=== PATIENT | female | born 1975 | race African-American/Black ===

== ENCOUNTER → 2016-11-03 | Outpatient (CLI) | payer MEDICARE ==
[2016-11-03 18:19] LABS: ABSOLUTE EOSINOPHILS # (AUTO) 0.1 10^3/uL (0.0-0.6); ABSOLUTE LYMPHOCYTES (AUTO) 0.2 10^3/uL (0.5-4.7); ABSOLUTE MONOCYTES (AUTO) 0.4 10^3/uL (0.1-1.4); ABSOLUTE NEUT (AUTO) 3.3 10^3/uL (1.7-8.2); BASOPHILS % (AUTO) 0.3 % (0-2); EOSINOPHILS % (AUTO) 1.6 % (0-6); HEMATOCRIT 26.8 % (36.0-47.0); HEMOGLOBIN 8.7 g/dL (12.0-15.5); HGB HCT DIFFERENCE -0.7; LYMPHOCYTES % (AUTO) 6.1 % (13-45); MEAN CORPUSCULAR HEMOGLOBIN 29.4 pg (27.0-33.4); MEAN CORPUSCULAR HGB CONC 32.5 g/dL (32.0-36.0); MEAN CORPUSCULAR VOLUME 90 fl (80-97); MONOCYTES % (AUTO) 10.4 % (3-13); RED BLOOD COUNT 2.96 10^6/uL (3.72-5.28); RED CELL DISTRIBUTION WIDTH 17.8 % (11.5-14.0); SEGMENTED NEUTROPHILS % (AUTO) 81.6 % (42-78)
[2016-11-03 18:50] LABS: ALANINE AMINOTRANSFERASE 30 U/L (9-52); ALBUMIN 4.1 g/dL (3.5-5.0); ALKALINE PHOSPHATASE 68 U/L (38-126); ANION GAP 15 (5-19); ASPARTATE AMINO TRANSFERASE 39 U/L (14-36); BILIRUBIN,TOTAL 0.6 mg/dL (0.2-1.3); BLOOD UREA NITROGEN 20 mg/dL (7-20); C-REACTIVE PROTEIN 21.7 mg/L (<10.0); CALCIUM 9.1 mg/dL (8.4-10.2); CARBON DIOXIDE 30 mmol/L (22-30); CHLORIDE 98 mmol/L (98-107); CREATININE RESULT 1.29 mg/dL (0.52-1.25); GLUCOSE 103 mg/dL (75-110); POTASSIUM 3.2 mmol/L (3.6-5.0); SODIUM 142.7 mmol/L (137-145); TOTAL PROTEIN 7.7 g/dL (6.3-8.2); URIC ACID 8.6 mg/dL (2.5-7.0)
[2016-11-03 19:01] LABS: ERYTHROCYTE SEDIMENTATION RATE 80 mm/hr (0-20)
[2016-11-04 16:54] LABS: ABSOLUTE LYMPHOCYTES (AUTO) 0.3 10^3/uL (0.5-4.7); ABSOLUTE MONOCYTES (AUTO) 0.6 10^3/uL (0.1-1.4); ABSOLUTE NEUT (AUTO) 3.2 10^3/uL (1.7-8.2); BASOPHILS % (AUTO) 0.3 % (0-2); HEMATOCRIT 26.1 % (36.0-47.0); HEMOGLOBIN 8.4 g/dL (12.0-15.5); HGB HCT DIFFERENCE -0.9; LYMPHOCYTES % (AUTO) 6.7 % (13-45); MEAN CORPUSCULAR HEMOGLOBIN 29.1 pg (27.0-33.4); MEAN CORPUSCULAR HGB CONC 32.3 g/dL (32.0-36.0); MEAN CORPUSCULAR VOLUME 90 fl (80-97); MONOCYTES % (AUTO) 13.5 % (3-13); RED CELL DISTRIBUTION WIDTH 17.7 % (11.5-14.0); SEGMENTED NEUTROPHILS % (AUTO) 78.5 % (42-78); WHITE BLOOD COUNT 4.1 10^3/uL (4.0-10.5)
== END ==
LOC: OD 17:11
PROVIDERS: ATTEND Internal Medicine Rheumatology
DX: M15.0 Primary generalized (osteo)arthritis (principal); M54.5 Low back pain; M05.79 Rheumatoid arthritis with rheumatoid factor of multiple sites without organ or systems involvement; R53.83 Other fatigue; D64.9 Anemia, unspecified; Z79.899 Other long term (current) drug therapy; M79.609 Pain in unspecified limb; M79.1 Myalgia; M25.50 Pain in unspecified joint; G89.4 Chronic pain syndrome; M10.9 Gout, unspecified
CPT/HCPCS: 36415; 80053; 82728; 83540; 83550; 84550; 85025; 85045; 85652; 86140

== ENCOUNTER → 2016-12-30 | Outpatient (CLI) | payer MEDICARE ==
[2016-12-30 16:36] LABS: ABSOLUTE EOSINOPHILS # (AUTO) 0.1 10^3/uL (0.0-0.6); ABSOLUTE LYMPHOCYTES (AUTO) 0.8 10^3/uL (0.5-4.7); ABSOLUTE MONOCYTES (AUTO) 0.4 10^3/uL (0.1-1.4); BASOPHILS % (AUTO) 0.6 % (0-2); EOSINOPHILS % (AUTO) 1.9 % (0-6); HEMATOCRIT 26.8 % (36.0-47.0); HEMOGLOBIN 8.7 g/dL (12.0-15.5); HGB HCT DIFFERENCE -0.7; LYMPHOCYTES % (AUTO) 18.6 % (13-45); MEAN CORPUSCULAR HEMOGLOBIN 27.8 pg (27.0-33.4); MEAN CORPUSCULAR HGB CONC 32.3 g/dL (32.0-36.0); MEAN CORPUSCULAR VOLUME 86 fl (80-97); MONOCYTES % (AUTO) 8.8 % (3-13); RED BLOOD COUNT 3.11 10^6/uL (3.72-5.28); RED CELL DISTRIBUTION WIDTH 19.1 % (11.5-14.0); SEGMENTED NEUTROPHILS % (AUTO) 70.1 % (42-78); WHITE BLOOD COUNT 4.3 10^3/uL (4.0-10.5)
[2016-12-30 17:01] LABS: ALANINE AMINOTRANSFERASE 22 U/L (9-52); ALBUMIN 3.9 g/dL (3.5-5.0); ALKALINE PHOSPHATASE 73 U/L (38-126); ANION GAP 12 (5-19); ASPARTATE AMINO TRANSFERASE 25 U/L (14-36); BILIRUBIN,DIRECT 0.3 mg/dL (0.0-0.4); BILIRUBIN,TOTAL 0.4 mg/dL (0.2-1.3); BLOOD UREA NITROGEN 18 mg/dL (7-20); C-REACTIVE PROTEIN 8.9 mg/L (<10.0); CALCIUM 8.8 mg/dL (8.4-10.2); CARBON DIOXIDE 29 mmol/L (22-30); CHLORIDE 100 mmol/L (98-107); CREATININE RESULT 0.94 mg/dL (0.52-1.25); GLUCOSE 124 mg/dL (75-110); POTASSIUM 3.5 mmol/L (3.6-5.0); SODIUM 141.3 mmol/L (137-145); TOTAL PROTEIN 7.6 g/dL (6.3-8.2)
[2016-12-30 17:23] LABS: ERYTHROCYTE SEDIMENTATION RATE 78 mm/hr (0-20)
== END ==
LOC: OD 15:49
PROVIDERS: ATTEND Internal Medicine Rheumatology
DX: M05.79 Rheumatoid arthritis with rheumatoid factor of multiple sites without organ or systems involvement (principal); M10.9 Gout, unspecified; M25.50 Pain in unspecified joint; M15.0 Primary generalized (osteo)arthritis; M25.569 Pain in unspecified knee; D50.8 Other iron deficiency anemias; Z79.899 Other long term (current) drug therapy
CPT/HCPCS: 36415; 80053; 84550; 85025; 85652; 86140

== ENCOUNTER 2017-01-19 22:03 | Emergency (ER) | payer MEDICARE ==
[2017-01-20] MEDS ORDERED: HYDROCODONE/ACETAMINOPHEN 5-325 MG 6 TAB/DSPK PO PRN (02:24)
[2017-01-20] MEDS ORDERED: PENICILLIN V POTASSIUM 500 MG TABLET PO ONE (02:24)
--- NOTE | 2017-01-20 02:26 | ER Document Report ---
HPI - HPI Patient complains to provider of: tooth pain, congestion, tongue irritation Pain Level: 4 Context: Patient is a 41-year-old female that comes emergency department with chief complaint of 5 days of pain in her jaw reading up towards her years, worse on the right lower side, also present slightly on the left. Patient also states that she feels like her to his burning intermittently, she denies loss of sensation or taste. Patient also states she is congested and some measure ears ringing. She admits congestion and ear ringing is not new and has been going on intermittently for months and she is seen primary care for this. She denies fever, neck pain. - REPRODUCTIVE LMP: 12/23/16 Reproductive: DENIES: : - DERM Skin Color: Normal Past Medical History - General Information source: Patient - Social History Smoking Status: Never Smoker Frequency of alcohol use: None Drug Abuse: None Lives with: Family Family History: Reviewed & Not Pertinent Patient has suicidal ideation: No Patient has homicidal ideation: No - Past Medical History Cardiac Medical History: Reports: Hx Hypercholesterolemia, Hx Hypertension Endocrine Medical History: Reports: Hx Diabetes Mellitus Type 1 Renal/ Medical History: Denies: Hx Peritoneal Dialysis Musculoskeltal Medical History: Reports Hx Arthritis - rheumatoid - Immunizations Hx Diphtheria, Pertussis, Tetanus Vaccination: Yes Vertical Provider Document - CONSTITUTIONAL General Appearance: No Apparent Distress, Obese - INFECTION CONTROL TRAVEL OUTSIDE OF THE [place] IN LAST 30 DAYS: No - HEENT HEENT: Atraumatic, Normocephalic. negative: PERRLA, Pharyngeal Exudate, Pharyngeal Tenderness, Pharyngeal Erythema, Tympanic Membrane Red, Tympanic Membrane Bulging Mouth Diagram: 1 - Dental caries with surrounding erythema, no drainable abscess, no other abnormalities noted in the oral cavity - NECK Neck: Normal Inspection - RESPIRATORY Respiratory: Breath Sounds Normal, No Respiratory Distress O2 Sat by Pulse Oximetry: 100 - CARDIOVASCULAR Cardiovascular: Regular Rate, Regular Rhythm - GI/ABDOMEN Gastrointestinal: Abdomen Soft, Abdomen Non-Tender - BACK Back: Normal Inspection - MUSCULOSKELETAL/EXTREMETIES Musculoskeletal/Extremeties: MAEW, FROM, Non-Tender - NEURO Level of Consciousness: Awake, Alert, Appropriate Motor/Sensory: No Motor Deficit, No Sensory Deficit - DERM Integumentary: Warm, Dry, No Rash Course - Re-evaluation Re-evalutation: Patient asking for Flonase for intermittent nasal congestion. - Vital Signs Vital signs: Temp Pulse Resp BP Pulse Ox 98.6 F 82 20 142/68 H 100 01/19/17 22:12 01/19/17 22:12 01/19/17 22:12 01/19/17 22:12 01/19/17 22:12 Discharge - Discharge Clinical Impression: Pain, dental Condition: Stable Disposition: HOME, SELF-CARE Additional Instructions: Take penicillin as directed for dental infection, follow-up with your dentist for additional management. Take pain medication if needed. Take the Flonase if needed for congestion symptoms. Follow-up with primary care additionally. Return to the emergency department for any concerning or worsening symptoms. Prescriptions: Fluticasone Propionate [Flonase Nasal [place] 50 Mcg/[place] 16 gm] 1 spray NASL Q12 #1 inhaler Hydrocodone/Acetaminophen [[place] 5-325 mg Tablet] 1 - 2 tab PO ASDIR #15 tablet Penicillin V Potassium [Penicillin Vk 500 mg Tablet] 500 mg PO BID #20 tablet
[2017-01-20 02:50] VITALS: BP 161/92
== END 2017-01-20 02:48 | disposition home or self-care (01) ==
LOC: ER 22:03
DX: K08.89 Other specified disorders of teeth and supporting structures (principal); R09.81 Nasal congestion
CPT/HCPCS: 99282; A9270 ×2

== ENCOUNTER → 2017-10-27 | Outpatient (CLI) | payer MEDICARE ==
[2017-10-27 18:42] LABS: ABSOLUTE LYMPHOCYTES (AUTO) 0.8 10^3/uL (0.5-4.7); ABSOLUTE MONOCYTES (AUTO) 0.3 10^3/uL (0.1-1.4); ABSOLUTE NEUT (AUTO) 2.2 10^3/uL (1.7-8.2); BASOPHILS % (AUTO) 0.4 % (0-2); EOSINOPHILS % (AUTO) 1.2 % (0-6); HEMATOCRIT 29.8 % (36.0-47.0); HEMOGLOBIN 9.9 g/dL (12.0-15.5); LYMPHOCYTES % (AUTO) 24.3 % (13-45); MEAN CORPUSCULAR HEMOGLOBIN 30.3 pg (27.0-33.4); MEAN CORPUSCULAR HGB CONC 33.2 g/dL (32.0-36.0); MEAN CORPUSCULAR VOLUME 91 fl (80-97); MONOCYTES % (AUTO) 9.8 % (3-13); PLATELET COUNT 286 10^3/uL (150-450); RED BLOOD COUNT 3.27 10^6/uL (3.72-5.28); RED CELL DISTRIBUTION WIDTH 17.5 % (11.5-14.0); SEGMENTED NEUTROPHILS % (AUTO) 64.3 % (42-78); TOTAL CELLS COUNTED % (AUTO) 100 %; WHITE BLOOD COUNT 3.4 10^3/uL (4.0-10.5)
[2017-10-27 19:06] LABS: ALANINE AMINOTRANSFERASE 33 U/L (9-52); ALBUMIN 4.5 g/dL (3.5-5.0); ALKALINE PHOSPHATASE 54 U/L (38-126); ANION GAP 9 (5-19); ASPARTATE AMINO TRANSFERASE 33 U/L (14-36); BILIRUBIN,DIRECT 0.4 mg/dL (0.0-0.4); BILIRUBIN,TOTAL 0.4 mg/dL (0.2-1.3); BLOOD UREA NITROGEN 18 mg/dL (7-20); CALCIUM 9.6 mg/dL (8.4-10.2); CARBON DIOXIDE 34 mmol/L (22-30); CHLORIDE 99 mmol/L (98-107); GLUCOSE 112 mg/dL (75-110); POTASSIUM 3.6 mmol/L (3.6-5.0); SODIUM 141.7 mmol/L (137-145); TOTAL PROTEIN 7.8 g/dL (6.3-8.2)
[2017-10-27 19:35] LABS: ERYTHROCYTE SEDIMENTATION RATE 55 mm/hr (0-20)
== END ==
LOC: OD 16:52
PROVIDERS: ATTEND Internal Medicine Rheumatology
DX: M15.0 Primary generalized (osteo)arthritis (principal); Z79.899 Other long term (current) drug therapy; M05.29 Rheumatoid vasculitis with rheumatoid arthritis of multiple sites; M79.1 Myalgia; E79.0 Hyperuricemia without signs of inflammatory arthritis and tophaceous disease; M06.9 Rheumatoid arthritis, unspecified; E55.9 Vitamin D deficiency, unspecified
CPT/HCPCS: 36415; 80053; 85025; 85652; 86140

== ENCOUNTER 2017-11-05 20:01 | Emergency (ER) | payer MEDICARE ==
[2017-11-05 22:31] LABS: ABSOLUTE LYMPHOCYTES (AUTO) 0.7 10^3/uL (0.5-4.7); ABSOLUTE MONOCYTES (AUTO) 0.6 10^3/uL (0.1-1.4); ABSOLUTE NEUT (AUTO) 2.8 10^3/uL (1.7-8.2); BASOPHILS % (AUTO) 0.3 % (0-2); EOSINOPHILS % (AUTO) 0.3 % (0-6); HEMATOCRIT 29.5 % (36.0-47.0); HEMOGLOBIN 9.8 g/dL (12.0-15.5); LYMPHOCYTES % (AUTO) 16.6 % (13-45); MEAN CORPUSCULAR HEMOGLOBIN 30.5 pg (27.0-33.4); MEAN CORPUSCULAR HGB CONC 33.1 g/dL (32.0-36.0); MEAN CORPUSCULAR VOLUME 92 fl (80-97); MONOCYTES % (AUTO) 15.3 % (3-13); PLATELET COUNT 254 10^3/uL (150-450); RED CELL DISTRIBUTION WIDTH 17.7 % (11.5-14.0); SEGMENTED NEUTROPHILS % (AUTO) 67.5 % (42-78); TOTAL CELLS COUNTED % (AUTO) 100 %; WHITE BLOOD COUNT 4.1 10^3/uL (4.0-10.5)
[2017-11-05 22:57] LABS: ANION GAP 14 (5-19); BLOOD UREA NITROGEN 16 mg/dL (7-20); CALCIUM 9.2 mg/dL (8.4-10.2); CARBON DIOXIDE 29 mmol/L (22-30); CHLORIDE 99 mmol/L (98-107); GLUCOSE 108 mg/dL (75-110); POTASSIUM 3.2 mmol/L (3.6-5.0); SODIUM 141.6 mmol/L (137-145)
--- NOTE | 2017-11-05 23:30 | RADIOLOGY REPORT (SQ) ---
EXAM DESCRIPTION: U/S NON OB PEL TV W/DOPPLER COMPLETED DATE/TIME: 11/05/2017 10:58 pm REASON FOR STUDY: heavy vaginal bleeding x 2 months COMPARISON: None. TECHNIQUE: Dynamic and static grayscale images acquired of the pelvis via transvaginal approach and recorded on PACS. Additional selected color Doppler and spectral images recorded. LIMITATIONS: Dense shadowing in the right adnexal mass. FINDINGS: UTERUS: Contour normal. No mass. ENDOMETRIAL STRIPE: No focal or generalized thickening. No masses. CERVIX: No nabothian cysts. RIGHT OVARY: 5 cm complex density mass with shadowing in the right adnexa suggesting calcifications. Pelvic Dermoid lesion reported on prior CT from July 2015. RIGHT OVARY DOPPLER: Normal arterial vascular flow without evidence for torsion. LEFT OVARY: Ovary not visualized. FREE FLUID: None noted. OTHER: No other significant finding. MEASUREMENTS: UTERUS: 10.4 x 5.7 x 4.0 cm ENDOMETRIAL STRIPE: 3.5 mm RIGHT OVARY: 4.8 x 3.4 x 5.0 cm LEFT OVARY: Not visualized. IMPRESSION: Incompletely evaluated 5 cm complex density mass with shadowing in the right adnexa sugg esting calcifications, Pelvic Dermoid lesion reported on prior CT from July 2015. Nonvisualized left ovary. TECHNICAL DOCUMENTATION: JOB ID: [id number] [id number] 2010 [employer]- All Rights Reserved
--- NOTE | 2017-11-06 | ER Document Report ---
ED General - General Chief Complaint: Vaginal Bleeding Stated Complaint: MENSTRURAL PROBLEM Time Seen by Provider: 11/05/17 21:54 Notes: Patient is a 42-year-old female morbidly obese, history of hypertension, hyperlipidemia, who presents with concerns of ongoing vaginal bleeding. Patient states that she has a history of highly irregular menstrual cycles but that her current period has been much heavier and longer lasting than normal. She states that she became concerned when she passed what appeared to be a piece of tissue today. No history of similar episodes in the past. She has not seen her primary doctor and [facility] regarding today's concerns. She denies any abdominal pain, fever, vomiting, or syncope. She has not tried anything to regulate her menstrual cycle since she was in her 20s. Nothing seems to worsen her symptoms. She does note some chronic fatigue. TRAVEL OUTSIDE OF THE [place] IN LAST 30 DAYS: No - Related Data Allergies/Adverse Reactions: tramadol [From [employer]] Adverse Reaction (Verified 08/17/16 11:42) Past Medical History - General Information source: Patient - Social History Smoking Status: Never Smoker Chew tobacco use (# tins/day): No Frequency of alcohol use: None Drug Abuse: None Lives with: Alone Family History: Reviewed & Not Pertinent Patient has suicidal ideation: No Patient has homicidal ideation: No - Past Medical History Cardiac Medical History: Reports: Hx Hypercholesterolemia, Hx Hypertension Endocrine Medical History: Reports: Hx Diabetes Mellitus Type 1 Renal/ Medical History: Denies: Hx Peritoneal Dialysis Musculoskeltal Medical History: Reports Hx Arthritis - rheumatoid - Immunizations Hx Diphtheria, Pertussis, Tetanus Vaccination: Yes Review of Systems - Review of Systems Notes: Constitutional: Negative for fever. HENT: Negative for sore throat. Eyes: Negative for visual changes. Cardiovascular: Negative for chest pain. Respiratory: Negative for shortness of breath. Gastrointestinal: Negative for abdominal pain, vomiting or diarrhea. Genitourinary: Positive for vaginal bleeding Musculoskeletal: Negative for back pain. Skin: Negative for rash. Neurological: Negative for headaches, weakness or numbness. 10 point ROS negative except as marked above and in HPI. Physical Exam - Vital signs Vitals: Temp Pulse Resp BP Pulse Ox 98.6 F 79 20 152/95 H 97 11/05/17 20:51 11/05/17 20:51 11/05/17 20:51 11/05/17 20:51 11/05/17 20:51 Interpretation: Hypertensive Notes: PHYSICAL EXAMINATION: GENERAL: Obese female, well-appearing, well-nourished and in no acute distress. HEAD: Atraumatic, normocephalic. EYES: Pupils equal round and reactive to light, extraocular movements intact, sclera anicteric, conjunctiva are normal. ENT: nares patent, oropharynx clear without exudates. Moist mucous membranes. NECK: Normal range of motion, supple without lymphadenopathy LUNGS: Breath sounds clear to auscultation bilaterally and equal. No wheezes rales or rhonchi. HEART: Regular rate and rhythm without murmurs ABDOMEN: Morbidly obese abdomen, soft, nontender, normoactive bowel sounds. No guarding, no rebound. No masses appreciated. EXTREMITIES: Normal range of motion, no pitting or edema. No cyanosis. NEUROLOGICAL: No focal neurological deficits. Moves all extremities spontaneously and on command. PSYCH: Normal mood, normal affect. SKIN: Warm, Dry, normal turgor, no rashes or lesions noted. Course - Re-evaluation Re-evalutation: 11/05/17 23:56 Presentation is most consistent with dysfunctional uterine bleeding and otherwise well-appearing patient. Hemoglobin is unchanged from baseline.. She is not . No tachycardia or hypotension. Examination is otherwise unremarkable. She denies bleeding through more than 2 pads an hour at any point in time. Transvaginal ultrasound does not demonstrate any concerning findings, only a right ovarian cyst which was present in 2015. I have prescribed ferrous sulfate for her chronic anemia and recommended stool softeners to take with this medication. I have instructed that she will need to follow-up with [facility] as this is been a chronic problem. I do not suspect any alternative pathology as patient denies any symptoms other than heavy vaginal bleeding and actually denies any ongoing bleeding at time of my assessment. At this time will discharge with return precautions and follow-up recommendations. Verbal discharge instructions given a the bedside and opportunity for questions given. Medication warnings reviewed. Patient is in agreement with this plan and has verbalized understanding of return precautions and the need for primary care follow-up in the next 24-72 hours. - Vital Signs Vital signs: Temp Pulse Resp BP Pulse Ox 98.9 F 79 17 169/86 H 97 11/06/17 00:11 11/06/17 00:11 11/06/17 00:11 11/06/17 00:11 11/06/17 00:11 - Laboratory Result Diagrams: 11/05/17 22:19 11/05/17 22:19 Laboratory results interpreted by me: 11/05/17 11/05/17 22:19 22:19 RBC 3.20 L Hgb 9.8 L Hct 29.5 L RDW 17.7 H Monocytes % 15.3 H Potassium 3.2 L Est GFR (Non-Af Amer) 53 L - Diagnostic Test Radiology reviewed: Reports reviewed Discharge - Discharge Clinical Impression: Dysfunctional uterine bleeding, Chronic anemia Condition: Good Disposition: HOME, SELF-CARE Additional Instructions: You were seen today for dysfunctional uterine bleeding. This is when you have vaginal bleeding and abdominal cramping off of your normal menstrual cycle. You need to follow-up with [facility] or your primary care physician the next 1-3 days to discuss long-term options for regulating your cycle. Return immediately if you begin to have severe abdominal pain, you began bleeding through more than 2 pads per hour for more than 3 hours, you pass out, have persistent vomiting, develop a fever greater than 100.4F, or any other symptoms that are concerning to you. Begin taking iron tablets that have been prescribed. Please take to docusate tablets daily while taking the iron supplements as they are very constipating. Prescriptions: Ferrous Sulfate 325 mg PO TID #90 tablet
[2017-11-06 00:19] VITALS: BP 169/86
== END 2017-11-06 00:11 | disposition home or self-care (01) ==
LOC: ER 20:01
DX: N93.8 Other specified abnormal uterine and vaginal bleeding (principal); D64.9 Anemia, unspecified; E66.01 Morbid (severe) obesity due to excess calories; I10 Essential (primary) hypertension; E78.5 Hyperlipidemia, unspecified
CPT/HCPCS: 36415; 76830; 80048; 84702; 85025; 86900; 86901; 93976; 99284

== ENCOUNTER 2017-11-09 05:35 | Emergency (ER) | payer MEDICARE ==
[2017-11-09 05:53] VITALS: BP 108/58
--- NOTE | 2017-11-09 06:31 | ER Document Report ---
ED General - General Chief Complaint: Cough Stated Complaint: COUGH/TROUBLE BREATHING Time Seen by Provider: 11/09/17 06:19 Notes: 82-year-old lady presents with cough all night "coughing like a dog". She has been getting over a cold and states that she also has some "cold in my chest left over. She describes this as pleuritic chest pain or shortness of breath. No fever chills. No flu. Took 1 dose of Robitussin and came to the ED. No history of reactive airway disease. Obese and diabetic. No smoking. TRAVEL OUTSIDE OF THE [place] IN LAST 30 DAYS: No - Related Data Allergies/Adverse Reactions: No Known Allergies Allergy (Unverified 11/09/17 06:13) Past Medical History - Social History Smoking Status: Never Smoker Chew tobacco use (# tins/day): No Frequency of alcohol use: None Drug Abuse: None Family History: Reviewed & Not Pertinent Patient has suicidal ideation: No Patient has homicidal ideation: No - Past Medical History Cardiac Medical History: Reports: Hx Hypercholesterolemia, Hx Hypertension Endocrine Medical History: Reports: Hx Diabetes Mellitus Type 1 Renal/ Medical History: Denies: Hx Peritoneal Dialysis Musculoskeltal Medical History: Reports Hx Arthritis - rheumatoid - Immunizations Hx Diphtheria, Pertussis, Tetanus Vaccination: Yes Review of Systems - Review of Systems Notes: REVIEW OF SYSTEMS GEN: Denies fever, chills, weight loss ENT: Denies sore throat, nasal discharge, ear pain EYES: Denies blurry vision, eye pain, discharge CV: Denies chest pain, palpitations, edema RESP: Cough shortness of breath GI: Denies abdominal pain, nausea, vomiting, diarrhea MSK: Denies joint pain/swelling, edema, SKIN: Denies rash, skin lesions LYMPH: Denies swollen glands/lymph nodes NEURO: Denies headache, focal weakness or numbness, dizziness PSYCH: Denies depression, suicidal or homicidal ideation PHYSICAL EXAMINATION General: No acute distress, well-nourished. Obese. Head: Atraumatic, normocephalic ENT: Mouth normal, oropharynx moist, no exudates or tonsillar enlargement Eyes: Conjunctiva normal, pupils equal, lids normal Neck: No JVD, supple, no guarding CVS: Normal rate, regular rhythm, no murmurs Resp: No resp distress, equal and normal breath sounds bilaterally GI: Nondistended, soft, no tenderness to palpation, no rebound or guarding Ext: No deformities, no edema, normal range of motion in upper and lower ext Back: No CVA or midline TTP Skin: No rash, warm Lymphatic: No lymphadeopathy noted Neuro: Awake, alert. Face symmetric. GCS 15. Physical Exam - Vital signs Vitals: Temp Pulse Resp BP Pulse Ox 98.5 F 74 20 108/58 L 98 11/09/17 05:51 11/09/17 05:51 11/09/17 05:51 11/09/17 05:51 11/09/17 05:51 Course - Re-evaluation Re-evalutation: 11/09/17 06:31 Upper respiratory symptoms including chest pain shortness breath, sounds very viral-like congestion or pneumonia. Vitals are normal. Doubt flu. X-ray ordered. No evidence of reactive airway disease and exam. 11/09/17 07:26 Chest x-ray negative. Tessalon prescribed. I have discussed with the patient there likely diagnosis, aftercare plan, follow-up plans and my usual and customary return precautions. They verbalized understanding of this. - Vital Signs Vital signs: Temp Pulse Resp BP Pulse Ox 98.5 F 74 20 108/58 L 98 11/09/17 05:51 11/09/17 05:51 11/09/17 05:51 11/09/17 05:51 11/09/17 05:51 - Diagnostic Test Radiology reviewed: Image reviewed, Reports reviewed Discharge - Discharge Clinical Impression: Upper respiratory infection Qualifiers: URI type: unspecified URI Qualified Code(s): J06.9 - Acute upper respiratory infection, unspecified Condition: Good Disposition: HOME, SELF-CARE Instructions: Upper Respiratory Illness ([facility]) Additional Instructions: Follow-up with your primary care provider within 5 days Prescriptions: Benzonatate [Tessalon [place] 100 mg Capsule] 100 mg PO Q8HP PRN #40 cap PRN Reason:
--- NOTE | 2017-11-09 07:15 | RADIOLOGY REPORT (SQ) ---
EXAM DESCRIPTION: CHEST PA/LAT CLINICAL HISTORY: 42 years, Female, cough COMPARISON: 10/08/2013 NUMBER OF VIEWS: 2 FINDINGS: Normal lung volume, clear parenchyma, normal cardiac silhouette, and intact bony thorax. IMPRESSION: No acute cardiopulmonary findings.
== END 2017-11-09 07:47 | disposition home or self-care (01) ==
LOC: ER 05:35
DX: J06.9 Acute upper respiratory infection, unspecified (principal); R05 Cough; R07.81 Pleurodynia; I10 Essential (primary) hypertension; R06.02 Shortness of breath; E10.9 Type 1 diabetes mellitus without complications; E66.9 Obesity, unspecified; Z68.44 Body mass index [BMI] 60.0-69.9, adult
CPT/HCPCS: 71046; 99283

== ENCOUNTER → 2018-04-22 | Outpatient (CLI) | payer MEDICARE ==
[2018-04-22 18:22] LABS: ABSOLUTE EOSINOPHILS # (AUTO) 0.1 10^3/uL (0.0-0.6); ABSOLUTE LYMPHOCYTES (AUTO) 0.7 10^3/uL (0.5-4.7); ABSOLUTE MONOCYTES (AUTO) 0.5 10^3/uL (0.1-1.4); ABSOLUTE NEUT (AUTO) 4.3 10^3/uL (1.7-8.2); BASOPHILS % (AUTO) 0.4 % (0-2); EOSINOPHILS % (AUTO) 0.9 % (0-6); HEMATOCRIT 33.8 % (36.0-47.0); HEMOGLOBIN 11.5 g/dL (12.0-15.5); LYMPHOCYTES % (AUTO) 12.3 % (13-45); MEAN CORPUSCULAR VOLUME 94 fl (80-97); MONOCYTES % (AUTO) 8.4 % (3-13); PLATELET COUNT 238 10^3/uL (150-450); RED BLOOD COUNT 3.59 10^6/uL (3.72-5.28); RED CELL DISTRIBUTION WIDTH 16.4 % (11.5-14.0); TOTAL CELLS COUNTED % (AUTO) 100 %; WHITE BLOOD COUNT 5.5 10^3/uL (4.0-10.5)
[2018-04-22 18:46] LABS: ALANINE AMINOTRANSFERASE 27 U/L (9-52); ALBUMIN 4.3 g/dL (3.5-5.0); ALKALINE PHOSPHATASE 55 U/L (38-126); ANION GAP 13 (5-19); ASPARTATE AMINO TRANSFERASE 34 U/L (14-36); BILIRUBIN,DIRECT 0.5 mg/dL (0.0-0.4); BILIRUBIN,TOTAL 0.5 mg/dL (0.2-1.3); BLOOD UREA NITROGEN 16 mg/dL (7-20); C-REACTIVE PROTEIN 5.2 mg/L (<10.0); CALCIUM 9.3 mg/dL (8.4-10.2); CARBON DIOXIDE 29 mmol/L (22-30); CHLORIDE 99 mmol/L (98-107); GLUCOSE 151 mg/dL (75-110); POTASSIUM 3.5 mmol/L (3.6-5.0); SODIUM 141.3 mmol/L (137-145); TOTAL PROTEIN 8.1 g/dL (6.3-8.2)
[2018-04-22 19:02] LABS: ERYTHROCYTE SEDIMENTATION RATE 42 mm/hr (0-20)
== END ==
LOC: OD 17:20
PROVIDERS: ATTEND Internal Medicine Rheumatology
DX: M15.0 Primary generalized (osteo)arthritis (principal); M25.569 Pain in unspecified knee; M05.29 Rheumatoid vasculitis with rheumatoid arthritis of multiple sites; M79.1 Myalgia; M79.606 Pain in leg, unspecified; E79.0 Hyperuricemia without signs of inflammatory arthritis and tophaceous disease; M06.9 Rheumatoid arthritis, unspecified; E55.9 Vitamin D deficiency, unspecified; Z79.899 Other long term (current) drug therapy
CPT/HCPCS: 36415; 80053; 85025; 85652; 86140

== ENCOUNTER 2018-06-12 19:41 | Inpatient (IN) | payer MEDICARE ==
[2018-06-12] MEDS ORDERED: ONDANSETRON HCL INJ/PF 4 MG/2 ML SDV IV ONE (20:39)
[2018-06-12] MEDS ORDERED: LOPERAMIDE HCL 2 MG CAPSULE PO ONE (20:39)
[2018-06-12] MEDS ORDERED: NORMAL SALINE 1000 ML 1,000 ML IV ONE (20:39)
[2018-06-12 21:55] LABS: ALANINE AMINOTRANSFERASE 26 U/L (9-52); ALBUMIN 4.5 g/dL (3.5-5.0); ALKALINE PHOSPHATASE 83 U/L (38-126); ASPARTATE AMINO TRANSFERASE 37 U/L (14-36); BILIRUBIN,DIRECT 0.8 mg/dL (0.0-0.4); BILIRUBIN,TOTAL 1.2 mg/dL (0.2-1.3); BLOOD UREA NITROGEN 23 mg/dL (7-20); CALCIUM 9.5 mg/dL (8.4-10.2); LIPASE 56.1 U/L (23-300)
[2018-06-12 22:03] LABS: ANION GAP 20 (5-19)
[2018-06-12 22:04] LABS: CHLORIDE 84 mmol/L (98-107)
[2018-06-12 22:05] LABS: CARBON DIOXIDE 33 mmol/L (22-30); SODIUM 136.6 mmol/L (137-145)
[2018-06-12 22:06] LABS: GLUCOSE 497 mg/dL (75-110)
[2018-06-12 22:07] LABS: POTASSIUM 2.7 mmol/L (3.6-5.0)
[2018-06-12] MEDS ORDERED: RINGERS SOLUTION,LACTATED 1,000 ML IV ONE (22:18)
[2018-06-12] MEDS ORDERED: POTASSI CL 20 MEQ/50 ML RIDER 20 MEQ/50 ML RTUPB IV ONE (22:19)
[2018-06-12 22:29] LABS: ABSOLUTE LYMPHOCYTES (AUTO) 0.4 10^3/uL (0.5-4.7); ABSOLUTE MONOCYTES (AUTO) 0.5 10^3/uL (0.1-1.4); ABSOLUTE NEUT (AUTO) 4.1 10^3/uL (1.7-8.2); BASOPHILS % (AUTO) 0.4 % (0-2); EOSINOPHILS % (AUTO) 0.1 % (0-6); HEMATOCRIT 37.2 % (36.0-47.0); HEMOGLOBIN 12.8 g/dL (12.0-15.5); LYMPHOCYTES % (AUTO) 7.5 % (13-45); MEAN CORPUSCULAR HEMOGLOBIN 32.8 pg (27.0-33.4); MEAN CORPUSCULAR HGB CONC 34.4 g/dL (32.0-36.0); MEAN CORPUSCULAR VOLUME 95 fl (80-97); MONOCYTES % (AUTO) 10.6 % (3-13); PLATELET COUNT 177 10^3/uL (150-450); RED BLOOD COUNT 3.91 10^6/uL (3.72-5.28); RED CELL DISTRIBUTION WIDTH 14.9 % (11.5-14.0); SEGMENTED NEUTROPHILS % (AUTO) 81.4 % (42-78); TOTAL CELLS COUNTED % (AUTO) 100 %; WHITE BLOOD COUNT 5.1 10^3/uL (4.0-10.5)
[2018-06-12] MEDS ORDERED: INSULIN REG, HUMAN 100 UNIT/ML 3 ML VIAL (PYX) SUBCUT ONE (22:33)
--- NOTE | 2018-06-12 22:35 | ER Document Report ---
ED General - General Chief Complaint: Nausea/Vomiting/Diarrhea Stated Complaint: VOMITING Time Seen by Provider: 06/12/18 20:38 Notes: Patient is a 42-year-old female with a past medical history of insulin- dependent type 2 diabetes, hypertension, hyperlipidemia, morbid obesity who presents with 3 days of nausea, vomiting, diarrhea, and inability to tolerate oral intake. The patient states that the symptoms started shortly after she took a dose of oral fluconazole and have been ongoing since that time. She has not seen her general doctor regarding today's concerns. She has not noted that anything seems to improve or worsen her symptoms. She denies any history of similar symptoms in the past. No known sick contacts. She denies any focal abdominal pain but notes that she intermittently gets abdominal cramping when she has diarrheal bowel movements. She denies any current abdominal pain at this time. TRAVEL OUTSIDE OF THE [place] IN LAST 30 DAYS: No - Related Data Allergies/Adverse Reactions: No Known Allergies Allergy (Unverified 11/09/17 06:13) Past Medical History - General Information source: Patient - Social History Smoking Status: Never Smoker Frequency of alcohol use: None Drug Abuse: None Family History: Reviewed & Not Pertinent Patient has suicidal ideation: No Patient has homicidal ideation: No - Past Medical History Cardiac Medical History: Reports: Hx Hypercholesterolemia, Hx Hypertension Endocrine Medical History: Reports: Hx Diabetes Mellitus Type 1, Hx Diabetes Mellitus Type 2 Renal/ Medical History: Denies: Hx Peritoneal Dialysis Musculoskeletal Medical History: Reports Hx Arthritis - rheumatoid - Immunizations Hx Diphtheria, Pertussis, Tetanus Vaccination: Yes Review of Systems - Review of Systems Notes: Constitutional: Negative for fever. HENT: Negative for sore throat. Eyes: Negative for visual changes. Cardiovascular: Negative for chest pain. Respiratory: Negative for shortness of breath. Gastrointestinal: Positive for nausea, vomiting and diarrhea. Positive for abdominal cramping. Genitourinary: Negative for dysuria. Musculoskeletal: Negative for back pain. Skin: Negative for rash. Neurological: Negative for headaches, weakness or numbness. 10 point ROS negative except as marked above and in HPI. Physical Exam - Vital signs Vitals: Temp Pulse Resp BP Pulse Ox 98.5 F 88 16 137/89 H 98 06/12/18 19:52 06/12/18 19:52 06/12/18 19:52 06/12/18 19:52 06/12/18 19:52 Interpretation: Normal Notes: PHYSICAL EXAMINATION: GENERAL: Appears somewhat ill but in no acute distress HEAD: Atraumatic, normocephalic. EYES: Pupils equal round and reactive to light, extraocular movements intact, sclera anicteric, conjunctiva are normal. ENT: nares patent, oropharynx clear without exudates. Dry mucous membranes. NECK: Normal range of motion, supple without lymphadenopathy LUNGS: Breath sounds clear to auscultation bilaterally and equal. No wheezes rales or rhonchi. HEART: Regular rate and rhythm without murmurs ABDOMEN: Soft, morbidly obese abdomen, nontender, normoactive bowel sounds. No guarding, no rebound. No masses appreciated. EXTREMITIES: Normal range of motion, no pitting or edema. No cyanosis. NEUROLOGICAL: No focal neurological deficits. Moves all extremities spontaneously and on command. PSYCH: Normal mood, normal affect. SKIN: Warm, Dry, normal turgor, no rashes or lesions noted. Course - Re-evaluation Re-evalutation: 06/12/18 22:34 Patient presents with 3 days of persistent nausea, vomiting and diarrhea found to have profound electrolyte abnormalities including hypokalemia, hyponatremia, hyperglycemia, and a metabolic alkalosis consistent with persistent vomiting and diarrhea. The patient is overall nontoxic in appearance. Of concern however is that she has a prolonged QT in the setting of profound hypokalemia. We have initiated potassium and magnesium repletion. She is also receiving IV fluids. She has no focal abdominal tenderness, rebound or guarding on exam to suggest an acute intra-abdominal pathology. Symptoms appear most consistent with either a viral versus bacterial gastroenteritis. Stool cultures will be obtained if patient has another bowel movement here in the emergency department. Will also obtain a two-view of the abdomen to ensure that there is not a possible component of obstruction. The patient will then be admitted to the hospital. - Vital Signs Vital signs: Temp Pulse Resp BP Pulse Ox 98.5 F 88 15 137/86 H 98 06/12/18 19:52 06/12/18 19:52 06/13/18 02:01 06/13/18 02:01 06/13/18 02:01 - Laboratory Result Diagrams: 06/12/18 21:07 06/13/18 01:00 Laboratory results interpreted by me: 06/12/18 06/12/18 06/12/18 21:07 21:07 21:07 RDW 14.9 H Seg Neutrophils % 81.4 H Lymphocytes % 7.5 L Absolute Lymphocytes 0.4 L Sodium 136.6 L Potassium 2.7 L* Chloride 84 L Carbon Dioxide 33 H Anion Gap 20 H BUN 23 H Creatinine 1.81 H Est GFR ( Amer) 37 L Est GFR (Non-Af Amer) 30 L Glucose 497 H* Magnesium 1.5 L Direct Bilirubin 0.8 H AST 37 H Total Protein 9.0 H - Diagnostic Test Radiology reviewed: Image reviewed, Reports reviewed Radiology results interpreted by me: 06/12/18 23:26 2 view abdomen: No evidence of obstruction or perforation - EKG Interpretation by Me Additional EKG results interpreted by me: 06/12/18 23:27 Sinus rhythm. Rate 81. Prolonged QT at 534. No ST elevations or depressions. Discharge - Discharge Clinical Impression: Prolonged QT interval, Hypokalemia, Nausea vomiting and diarrhea, Dehydration Condition: Fair Disposition: ADMITTED INPATIENT Admitting Provider: Hospitalist Unit Admitted: [facility]
[2018-06-12 22:53] LABS: VENOUS BLOOD HCO3 31.9 mmol/L (20-32); VENOUS BLOOD PCO2 52.4 mmHg (35-63); VENOUS BLOOD PH 7.4 (7.30-7.42)
--- NOTE | 2018-06-12 23:22 | RADIOLOGY REPORT (SQ) ---
EXAM DESCRIPTION: XR ABDOMEN 2 VIEWS SUPINE ERECT COMPLETED DATE/TME: 06/12/2018 22:33 CLINICAL HISTORY: 42 years Female, n/v COMPARISON: None. NUMBER OF VIEWS/TECHNIQUE: 2 FINDINGS: Intestinal gas pattern is within normal limits. No suspicious calcification. Grossly intact skeletal structures. IMPRESSION: No acute findings.
[2018-06-12] MEDS ORDERED: DEXTROSE 40% GEL 15 GM TUBE PO PRN ×2 (23:28)
[2018-06-12] MEDS ORDERED: IPRATROPIUM/ALBUTEROL 0.5-2.5 MG/3 ML AMPUL NEB PRN (23:28)
[2018-06-12] MEDS ORDERED: ACETAMINOPHEN 325 MG TABLET PO PRN (23:28)
[2018-06-12] MEDS ORDERED: NORMAL SALINE 100 ML with INSULIN REGULAR, HUMAN 100 UNIT IV PRN ×2 (23:28)
[2018-06-12] MEDS ORDERED: DEXTROSE 50%-WATER 25 GM/50 ML DISP.SYRIN IV PRN ×2 (23:28)
[2018-06-12] MEDS ORDERED: GLUCAGON,HUMAN RECOMB 1 MG INJ IM PRN (23:28)
[2018-06-12] MEDS ORDERED: MAG HYDROX/AL HYDROX/SIMETH SUSP 30 ML UDCUP PO PRN (23:28)
[2018-06-13] MEDS ORDERED: POTASSI CL 20 MEQ/D5-1/2NS 1L 1,000 ML IV SCH
[2018-06-13] MEDS: MAGNESIUM SULFATE/D5W 1 GM/100 ML RTUPB IV SCH ×2 (00:38→01:03)
[2018-06-13] MEDS ORDERED: INSULIN REG, HUMAN 100 UNIT/ML 3 ML VIAL (PYX) ONE (01:26)
[2018-06-13 01:45] LABS: BLOOD UREA NITROGEN 23 mg/dL (7-20); CALCIUM 8.9 mg/dL (8.4-10.2); CHLORIDE 88 mmol/L (98-107); SODIUM 135.5 mmol/L (137-145)
[2018-06-13 01:50] LABS: POTASSIUM 2.8 mmol/L (3.6-5.0)
[2018-06-13 01:51] LABS: CARBON DIOXIDE 29 mmol/L (22-30)
[2018-06-13 01:55] LABS: ANION GAP 19 (5-19)
[2018-06-13 01:57] LABS: GLUCOSE 420 mg/dL (75-110)
[2018-06-13] MEDS: POTASSI CL 20 MEQ/D5-1/2NS 1L 1,000 ML IV PRN ×2 (04:12→09:07)
[2018-06-13 04:20] LABS: APPEARANCE,URINE SLIGHTLY-CLOUDY; BILIRUBIN,URINE NEGATIVE (NEGATIVE); COLOR,URINE YELLOW; GLUCOSE, URINE >=500 mg/dL (NEGATIVE); KETONES,URINE 20 mg/dL (NEGATIVE); LEUKOCYTE ESTERASE,URINE SMALL (NEGATIVE); NITRITE,URINE NEGATIVE (NEGATIVE); PROTEIN,URINE 100 mg/dL (NEGATIVE); URINE SPECIFIC GRAVITY 1.031; UROBILINOGEN,URINE NEGATIVE mg/dL (<2.0)
[2018-06-13 04:33] LABS: URINE AMPHETAMINES SCREEN NEGATIVE; URINE BARBITURATES SCREEN NEGATIVE; URINE BENZODIAZEPINES SCREEN NEGATIVE; URINE MARIJUANA (THC) SCREEN NEGATIVE; URINE METHADONE SCREEN NEGATIVE; URINE PHENCYCLIDINE SCREEN NEGATIVE
[2018-06-13 05:11] LABS: ARTERIAL BLOOD BASE EXCESS 9.3 mmol/L; ARTERIAL BLOOD FIO2 ROOM AIR; ARTERIAL BLOOD H2CO3 1.37 mmol/L (1.05-1.35); ARTERIAL BLOOD HCO3 33.8 mmol/L (20-24); ARTERIAL BLOOD O2 SATURATION 95.2 % (94-98); ARTERIAL BLOOD PCO2 45.6 mmHg (35-45); ARTERIAL BLOOD PH 7.49 (7.35-7.45); ARTERIAL BLOOD PO2 70.7 mmHg (80-100); ARTERIAL BLOOD TOTAL CO2 35.2 mmol/L (21-25)
[2018-06-13 05:15] LABS: URINE COCAINE SCREEN NEGATIVE
[2018-06-13 05:27] LABS: ABSOLUTE LYMPHOCYTES (AUTO) 0.5 10^3/uL (0.5-4.7); ABSOLUTE MONOCYTES (AUTO) 0.5 10^3/uL (0.1-1.4); ABSOLUTE NEUT (AUTO) 2.7 10^3/uL (1.7-8.2); BASOPHILS % (AUTO) 0.5 % (0-2); HEMATOCRIT 31.9 % (36.0-47.0); HEMOGLOBIN 11.1 g/dL (12.0-15.5); LYMPHOCYTES % (AUTO) 12.3 % (13-45); MEAN CORPUSCULAR HEMOGLOBIN 32.5 pg (27.0-33.4); MEAN CORPUSCULAR HGB CONC 34.9 g/dL (32.0-36.0); MEAN CORPUSCULAR VOLUME 93 fl (80-97); MONOCYTES % (AUTO) 13.4 % (3-13); PLATELET COUNT 110 10^3/uL (150-450); RED BLOOD COUNT 3.42 10^6/uL (3.72-5.28); RED CELL DISTRIBUTION WIDTH 15.2 % (11.5-14.0); SEGMENTED NEUTROPHILS % (AUTO) 72.8 % (42-78); TOTAL CELLS COUNTED % (AUTO) 100 %; WHITE BLOOD COUNT 3.7 10^3/uL (4.0-10.5)
[2018-06-13] MEDS ORDERED: POTASSI CL 20 MEQ/D5-1/2NS 1L 1,000 ML IV PRN (05:30)
--- NOTE | 2018-06-13 05:45 | PDOC H&P ---
History of Present Illness Admission Date/PCP: 06/13/18 00:03 ALBA KINNEY MD Patient complains of: Nausea vomiting diarrhea History of Present Illness: LINDA COATS is a 42 year old female with a past medical history of super morbid obesity and insulin dependent diabetes. She presents with 5 days of diarrhea and discontinuation of insulin followed by nausea, vomiting and uncontrolled hyperglycemia. She denies fever, suspect meal, recent antibiotics or infectious contacts. In the emergency room she is found to have dehydration , hypokalemia, DKA, acute renal failure and prolonged QT interval. She receives potassium, magnesium and referred to the hospitalist for admission. Past Medical History Cardiac Medical History: Reports: Hyperlipidema, Hypertension Endocrine Medical History: Reports: Diabetes Mellitus Type 1, Obesity Musculoskeltal Medical History: Reports: Arthritis - rheumatoid Psychiatric Medical History: Denies: Depression Social History Information Source: Patient, [facility] Records Smoking Status: Never Smoker Frequency of Alcohol Use: None Hx Recreational Drug Use: No Drugs: None Hx Prescription Drug Abuse: No - Advance Directive Resuscitation Status: Full Code Family History Family History: Hypertension Parental Family History Reviewed: Yes Children Family History Reviewed: Yes Sibling(s) Family History Reviewed.: Yes Medication/Allergy Home Medications: Ondansetron [Zofran Odt 4 mg Tablet] 1 - 2 tab PO Q4H PRN #15 tab.rapdis Ciprofloxacin HCl [Cipro 500 mg Tablet] 500 mg PO BID #10 tablet 04/16/14 Folic Acid 1 mg PO DAILY 04/16/14 Gabapentin [Neurontin] 600 mg PO TID 04/16/14 Meloxicam [Mobic] 15 mg PO DAILY 04/16/14 Prednisolone 5 mg PO DAILY 04/16/14 Simvastatin 40 mg PO QHS 04/16/14 Tramadol HCl [Ultram] 50 mg PO TID 04/16/14 Ondansetron [Zofran Odt 4 mg Tablet] 1 tab PO Q4H PRN #15 tab.rapdis 07/24/15 Clindamycin HCl 300 mg PO Q6H #20 capsule 08/17/16 Fluticasone Propionate [Flonase Nasal [place] 50 Mcg/[place] 16 gm] 1 spray NASL Q12 #1 inhaler 01/20/17 Hydrocodone/Acetaminophen [[place] 5-325 mg Tablet] 1 - 2 tab PO ASDIR #15 tablet 01/20/17 Penicillin V Potassium [Penicillin Vk 500 mg Tablet] 500 mg PO BID #20 tablet Ferrous Sulfate 325 mg PO TID #90 tablet 11/05/17 Benzonatate [Tessalon Perle 100 mg Capsule] 100 mg PO Q8HP PRN #40 cap 11/09/17 Allergies/Adverse Reactions: No Known Allergies Allergy (Unverified 11/09/17 06:13) Review of Systems Constitutional: PRESENT: as per HPI, anorexia, fatigue. ABSENT: fever(s), headache(s), night sweats, weakness Eyes: ABSENT: visual disturbances Ears: ABSENT: hearing changes Cardiovascular: ABSENT: chest pain, dyspnea on exertion, edema, orthropnea, palpitations Respiratory: ABSENT: cough, hemoptysis Gastrointestinal: PRESENT: as per HPI, bloating, diarrhea, nausea, vomiting. ABSENT: abdominal pain, coffee ground emesis, constipation, dysphagia Genitourinary: ABSENT: dysuria, hematuria Musculoskeletal: ABSENT: joint swelling Integumentary: ABSENT: rash, wounds Neurological: ABSENT: abnormal gait, abnormal speech, confusion, dizziness, focal weakness, syncope Psychiatric: ABSENT: anxiety, depression, homidical ideation, suicidal ideation Endocrine: PRESENT: as per HPI, polyphagia, polyuria Hematologic/Lymphatic: ABSENT: easy bleeding, easy bruising Physical Exam Vital Signs: Temp Pulse Resp BP Pulse Ox 98.4 F 78 20 142/88 H 99 06/13/18 03:30 06/13/18 03:30 06/13/18 03:30 06/13/18 03:30 06/13/18 03:30 Intake & Output 06/11/18 06/12/18 06/13/18 11:59 11:59 11:59 Intake Total 1199 Balance 1199 Weight 148.3 kg General appearance: PRESENT: cooperative, mild distress, morbidly obese, well- developed, well-nourished Head exam: PRESENT: atraumatic, normocephalic Eye exam: PRESENT: conjunctiva pink, EOMI, PERRLA. ABSENT: scleral icterus Ear exam: PRESENT: normal external ear exam Mouth exam: PRESENT: dry mucosa, tongue midline Neck exam: ABSENT: carotid bruit, JVD, lymphadenopathy, thyromegaly Respiratory exam: PRESENT: clear to auscultation thania. ABSENT: rales, rhonchi, wheezes Cardiovascular exam: PRESENT: RRR. ABSENT: diastolic murmur, rubs, systolic murmur Pulses: PRESENT: normal dorsalis pedis pul Vascular exam: PRESENT: normal capillary refill GI/Abdominal exam: PRESENT: normal bowel sounds, soft. ABSENT: distended, guarding, mass, organolmegaly, rebound, tenderness Rectal exam: PRESENT: deferred Extremities exam: PRESENT: full ROM. ABSENT: calf tenderness, clubbing, pedal edema Neurological exam: PRESENT: alert, awake, oriented to person, oriented to place , oriented to time, oriented to situation, CN II-XII grossly intact. ABSENT: motor sensory deficit Psychiatric exam: PRESENT: appropriate affect, normal mood. ABSENT: homicidal ideation, suicidal ideation Skin exam: PRESENT: dry, intact, warm. ABSENT: cyanosis, rash Results Laboratory Results: 06/13/18 05:17 06/13/18 06/13/18 06/13/18 01:00 04:00 04:08 WBC RBC Hgb Hct MCV MCH MCHC RDW Plt Count Seg Neutrophils % Lymphocytes % Monocytes % Eosinophils % Basophils % Absolute Neutrophils Absolute Lymphocytes Absolute Monocytes Absolute Eosinophils Absolute Basophils Carbonic Acid HCO3/H2CO3 Ratio ABG pH ABG pCO2 ABG pO2 ABG HCO3 ABG O2 Saturation ABG Base Excess FiO2 Sodium 135.5 L Potassium 2.8 L* Chloride 88 L Carbon Dioxide 29 Anion Gap 19 BUN 23 H Creatinine 1.58 H Est GFR ( Amer) 43 L Est GFR (Non-Af Amer) 36 L Glucose 420 H* Calcium 8.9 Urine Color YELLOW Cancelled Urine Appearance SLIGHTLY-CLOUDY Cancelled Urine pH 5.0 Cancelled Ur Specific [place] 1.031 Cancelled Urine Protein 100 H Cancelled Urine Glucose (UA) >=500 H Cancelled Urine Ketones 20 H Cancelled Urine Blood MODERATE H Cancelled Urine Nitrite NEGATIVE Cancelled Ur Leukocyte Esterase SMALL H Cancelled Urine WBC (Auto) 13 Cancelled Urine RBC (Auto) 2 Cancelled 06/13/18 06/13/18 04:50 05:17 WBC 3.7 L RBC 3.42 L Hgb 11.1 L Hct 31.9 L MCV 93 MCH 32.5 MCHC 34.9 RDW 15.2 H Plt Count 110 L Seg Neutrophils % 72.8 Lymphocytes % 12.3 L Monocytes % 13.4 H Eosinophils % 1.0 Basophils % 0.5 Absolute Neutrophils 2.7 Absolute Lymphocytes 0.5 Absolute Monocytes 0.5 Absolute Eosinophils 0.0 Absolute Basophils 0.0 Carbonic Acid 1.37 H HCO3/H2CO3 Ratio 24:1 ABG pH 7.49 H ABG pCO2 45.6 H ABG pO2 70.7 L ABG HCO3 33.8 H ABG O2 Saturation 95.2 ABG Base Excess 9.3 FiO2 ROOM AIR Sodium Potassium Chloride Carbon Dioxide Anion Gap BUN Creatinine Est GFR ( Amer) Est GFR (Non-Af Amer) Glucose Calcium Urine Color Urine Appearance Urine pH Ur Specific [place] Urine Protein Urine Glucose (UA) Urine Ketones Urine Blood Urine Nitrite Ur Leukocyte Esterase Urine WBC (Auto) Urine RBC (Auto) Impressions: Abdomen X-Ray 06/12/18 22:33 IMPRESSION: No acute findings. Assessment & Plan - Diagnosis (1) Hypokalemia Is this a current diagnosis for this admission?: Yes Plan: Secondary to gastroenteritis with nausea vomiting and diarrhea. IV repletion, follow-up chemistry (2) Prolonged QT interval Is this a current diagnosis for this admission?: Yes Plan: Secondary to #1. IV magnesium and potassium ordered, follow-up chemistry (3) DKA (diabetic ketoacidoses) Qualifiers: Diabetes mellitus complication detail: with coma Is this a current diagnosis for this admission?: Yes Plan: D5 half-normal saline with 20 mEq potassium, IV insulin, follow-up chemistry every 6 hours (4) Gastroenteritis Is this a current diagnosis for this admission?: Yes Plan: Resolving, supportive measures (5) Nausea vomiting and diarrhea Is this a current diagnosis for this admission?: Yes Plan: Secondary to gastroenteritis, complicated by DKA. - Time Time Spent: 50 to 70 Minutes - Inpatient Certification Medical Necessity: Need Close Monitoring Due to Risk of Patient Decompensation
[2018-06-13 05:47] LABS: ANION GAP 13 (5-19); BLOOD UREA NITROGEN 23 mg/dL (7-20); CALCIUM 8.6 mg/dL (8.4-10.2); CARBON DIOXIDE 31 mmol/L (22-30); CHLORIDE 92 mmol/L (98-107); GLUCOSE 278 mg/dL (75-110); SODIUM 136.1 mmol/L (137-145)
[2018-06-13 05:54] LABS: POTASSIUM 2.9 mmol/L (3.6-5.0)
[2018-06-13] MEDS: HEPARIN SOD (PORCINE) 5,000 UNIT/ML 1 ML SYRINGE SUBCUT SCH ×3 (05:58→22:10)
[2018-06-13] MEDS: POTASSI CL 20 MEQ/50 ML RIDER 20 MEQ/50 ML RTUPB IV SCH ×2 (05:58→07:40)
[2018-06-13] MEDS ORDERED: POTASSIUM CHLORIDE 10 MEQ CAPSULE.ER PO ONE ×2 (06:00→15:30)
--- NOTE | 2018-06-13 08:13 | EKG REPORT ---
SEVERITY:- ABNORMAL ECG - SINUS RHYTHM LEFT VENTRICULAR HYPERTROPHY PROLONGED QT INTERVAL NONSPECIFIC ST-T CHANGES- INFERIOR LEADS : Confirmed by: Andre Mayberry MD 13-Jun-2018 08:12:36
[2018-06-13] MEDS ORDERED: INSULIN GLARGINE,HUM.REC.ANLOG 1,000 UNIT/10 ML UNIT SUBCUT ONE (09:30)
[2018-06-13 10:16] LABS: ANION GAP 12 (5-19); BLOOD UREA NITROGEN 21 mg/dL (7-20); CALCIUM 8.7 mg/dL (8.4-10.2); CARBON DIOXIDE 33 mmol/L (22-30); CHLORIDE 94 mmol/L (98-107); GLUCOSE 122 mg/dL (75-110); SODIUM 139.1 mmol/L (137-145)
[2018-06-13] MEDS ORDERED: POTASSI CL 20 MEQ/D5-1/2NS 1L 1000 ML IV PRN (11:15)
[2018-06-13] MEDS ORDERED: DEXTROSE 50%-WATER SYRINGE 25 GM/50 ML DOSE IV PRN (12:25)
[2018-06-13] MEDS ORDERED: DEXTROSE 50%-WATER SYRINGE 12.5 GM/25 ML DOSE IV PRN (12:25)
[2018-06-13] MEDS ORDERED: DEXTROSE 40% GEL 15 GM TUBE PO PRN (12:25)
[2018-06-13] MEDS ORDERED: GLUCAGON,HUMAN RECOMB 1 MG INJ IM PRN (12:25)
[2018-06-13] MEDS ORDERED: DEXTROSE 40% GEL 15 GM TUBE X 2 PO PRN (12:25)
[2018-06-13] MEDS: INSULIN LISPRO 100 UNIT/ML 3 ML VIAL SUBCUT PRN ×3 (13:02→22:08)
[2018-06-13 14:03] LABS: ANION GAP 13 (5-19); BLOOD UREA NITROGEN 17 mg/dL (7-20); CALCIUM 8.7 mg/dL (8.4-10.2); CARBON DIOXIDE 29 mmol/L (22-30); CHLORIDE 93 mmol/L (98-107); GLUCOSE 232 mg/dL (75-110); SODIUM 135.2 mmol/L (137-145)
[2018-06-13] MEDS ORDERED: HYDRALAZINE HCL INJ/PF 20 MG/1 ML SDV IV PRN (14:39)
--- NOTE | 2018-06-13 14:40 | PDOC PROGRESS REPORT ---
Subjective Progress Note for:: 06/13/18 - Seen on rounds this morning Subjective:: States that she feels better. States that she was having nausea vomiting and was also having decreased saliva. States that also she ran out of her insulin for about 2 weeks and went to her PCP last week but by then she had a starting nausea and vomiting which led to coming to the ED last night for evaluation. She tells me that she is not sure if she is type I or type II diabetic. Tells me that she takes about 26 units of Lantus at nighttime. Reason For Visit: MIXED METABLIC ACIDOSIS AND ALKALOSIS, SUPER Physical Exam Vital Signs: Temp Pulse Resp BP Pulse Ox 98.9 F 85 16 149/75 H 96 06/13/18 12:00 06/13/18 12:00 06/13/18 12:00 06/13/18 12:00 06/13/18 12:00 Intake & Output 06/12/18 06/13/18 06/14/18 06:59 06:59 06:59 Intake Total 1210 1622 Output Total 0 300 Balance 1210 1322 Weight 326 lb 15.128 oz 326 lb 15.128 oz General appearance: PRESENT: no acute distress, morbidly obese Head exam: PRESENT: atraumatic, normocephalic Eye exam: PRESENT: EOMI, PERRLA, scleral icterus Ear exam: PRESENT: normal external ear exam Mouth exam: PRESENT: tongue midline Neck exam: ABSENT: tracheal deviation Respiratory exam: PRESENT: decreased breath sounds - Bilaterally in all lung sanders-? Body habitus versus poor respiratory effort, symmetrical Pulses: PRESENT: +1 pedal pulses bilateral GI/Abdominal exam: PRESENT: normal bowel sounds, soft. ABSENT: tenderness Extremities exam: ABSENT: joint swelling, pedal edema Neurological exam: PRESENT: alert, awake, oriented to person, oriented to place , oriented to time, oriented to situation, CN II-XII grossly intact Skin exam: PRESENT: dry, warm Results Laboratory Results: 06/13/18 05:17 06/13/18 06/13/18 06/13/18 01:00 04:00 04:08 WBC RBC Hgb Hct MCV MCH MCHC RDW Plt Count Seg Neutrophils % Lymphocytes % Monocytes % Eosinophils % Basophils % Absolute Neutrophils Absolute Lymphocytes Absolute Monocytes Absolute Eosinophils Absolute Basophils Carbonic Acid HCO3/H2CO3 Ratio ABG pH ABG pCO2 ABG pO2 ABG HCO3 ABG O2 Saturation ABG Base Excess FiO2 Sodium 135.5 L Potassium 2.8 L* Chloride 88 L Carbon Dioxide 29 Anion Gap 19 BUN 23 H Creatinine 1.58 H Est GFR ( Amer) 43 L Est GFR (Non-Af Amer) 36 L Glucose 420 H* Calcium 8.9 Urine Color YELLOW Cancelled Urine Appearance SLIGHTLY-CLOUDY Cancelled Urine pH 5.0 Cancelled Ur Specific [place] 1.031 Cancelled Urine Protein 100 H Cancelled Urine Glucose (UA) >=500 H Cancelled Urine Ketones 20 H Cancelled Urine Blood MODERATE H Cancelled Urine Nitrite NEGATIVE Cancelled Ur Leukocyte Esterase SMALL H Cancelled Urine WBC (Auto) 13 Cancelled Urine RBC (Auto) 2 Cancelled 06/13/18 06/13/18 06/13/18 04:50 05:17 05:17 WBC 3.7 L RBC 3.42 L Hgb 11.1 L Hct 31.9 L MCV 93 MCH 32.5 MCHC 34.9 RDW 15.2 H Plt Count 110 L Seg Neutrophils % 72.8 Lymphocytes % 12.3 L Monocytes % 13.4 H Eosinophils % 1.0 Basophils % 0.5 Absolute Neutrophils 2.7 Absolute Lymphocytes 0.5 Absolute Monocytes 0.5 Absolute Eosinophils 0.0 Absolute Basophils 0.0 Carbonic Acid 1.37 H HCO3/H2CO3 Ratio 24:1 ABG pH 7.49 H ABG pCO2 45.6 H ABG pO2 70.7 L ABG HCO3 33.8 H ABG O2 Saturation 95.2 ABG Base Excess 9.3 FiO2 ROOM AIR Sodium 136.1 L Potassium 2.9 L* Chloride 92 L Carbon Dioxide 31 H Anion Gap 13 BUN 23 H Creatinine 1.34 H Est GFR ( Amer) 52 L Est GFR (Non-Af Amer) 43 L Glucose 278 H Calcium 8.6 Urine Color Urine Appearance Urine pH Ur Specific [place] Urine Protein Urine Glucose (UA) Urine Ketones Urine Blood Urine Nitrite Ur Leukocyte Esterase Urine WBC (Auto) Urine RBC (Auto) 06/13/18 09:16 WBC RBC Hgb Hct MCV MCH MCHC RDW Plt Count Seg Neutrophils % Lymphocytes % Monocytes % Eosinophils % Basophils % Absolute Neutrophils Absolute Lymphocytes Absolute Monocytes Absolute Eosinophils Absolute Basophils Carbonic Acid HCO3/H2CO3 Ratio ABG pH ABG pCO2 ABG pO2 ABG HCO3 ABG O2 Saturation ABG Base Excess FiO2 Sodium 139.1 Potassium 3.0 L* Chloride 94 L Carbon Dioxide 33 H Anion Gap 12 BUN 21 H Creatinine 1.39 H Est GFR ( Amer) 50 L Est GFR (Non-Af Amer) 41 L Glucose 122 H Calcium 8.7 Urine Color Urine Appearance Urine pH Ur Specific [place] Urine Protein Urine Glucose (UA) Urine Ketones Urine Blood Urine Nitrite Ur Leukocyte Esterase Urine WBC (Auto) Urine RBC (Auto) Impressions: Abdomen X-Ray 06/12/18 22:33 IMPRESSION: No acute findings. Assessment & Plan - Diagnosis (1) DKA (diabetic ketoacidoses) Qualifiers: Diabetes mellitus complication detail: with coma Is this a current diagnosis for this admission?: Yes Plan: Patient is not completely sure of his type I or type II. Her ABG is not clear for acidosis and seems to be a mixed picture. Her condition could be secondary to dehydration versus DKA. Her A1c at this admission was 11.5. She is supposed to be on 26 units of Lantus at home but did run out of it for 2 weeks until going to her PCP last Wednesday. But by then she already started to have nausea vomiting which could have been secondary to a gastroenteritis. At this time her anion gap improved and almost closed. I have started her on Lantus 10 units this morning and stopped her insulin drip. We will continue her D5 half- normal saline at 125 cc an hour for now. Likely she will get another small dose of Lantus tonight. Continue with sliding scale insulin with mealtime. (2) Dehydration Is this a current diagnosis for this admission?: Yes Plan: Continue with IV hydration at this time (3) Gastroenteritis Is this a current diagnosis for this admission?: Yes Plan: Likely the cause of her nausea and vomiting. Zofran as needed. (4) Hypokalemia Is this a current diagnosis for this admission?: Yes Plan: Continues to be hypokalemic-replete as needed with goal of greater than 3.5. She is currently getting D5 half-normal with 20 of K (5) Nausea vomiting and diarrhea Is this a current diagnosis for this admission?: Yes Plan: Likely secondary to gastroenteritis. Zofran as needed. (6) Prolonged QT interval Is this a current diagnosis for this admission?: Yes Plan: We will get a repeat EKG in the morning. Will monitor use of Zofran and any other antibiotics that may worsen daily. (7) Essential hypertension Is this a current diagnosis for this admission?: Yes Plan: Blood pressure slightly elevated-we will continue with some of her meds and hold the rest due to suspected AK I. We will add hydralazine as needed
[2018-06-13] MEDS: POTASSI CL 20 MEQ/NS 1L 1,000 ML IV PRN ×2 (15:41→23:44)
[2018-06-13] MEDS: AMLODIPINE BESYLATE 10 MG TABLET PO SCH (15:43)
[2018-06-13] MEDS: FAMOTIDINE 20 MG TABLET PO SCH (17:16)
[2018-06-13] MEDS: FERROUS SULFATE 325 MG TABLET PO SCH (17:16)
[2018-06-13] MEDS ORDERED: (PENDING PHARMACY ID) (Ranitidine Hcl [Zantac 150 Mg Tablet] 150 MG) PO SCH (18:00)
[2018-06-13 18:04] LABS: ANION GAP 13 (5-19); BLOOD UREA NITROGEN 15 mg/dL (7-20); CALCIUM 8.5 mg/dL (8.4-10.2); CARBON DIOXIDE 30 mmol/L (22-30); CHLORIDE 92 mmol/L (98-107); GLUCOSE 271 mg/dL (75-110); POTASSIUM 3.1 mmol/L (3.6-5.0); SODIUM 134.5 mmol/L (137-145)
[2018-06-13] MEDS ORDERED: INSULIN GLARGINE,HUM.REC.ANLOG 300 UNIT/3 ML INSULN.PEN SUBCUT SCH (22:00)
[2018-06-13] MEDS ORDERED: (PENDING PHARMACY ID) (Rosuvastatin Calcium [Crestor 20 Mg Tablet] 20 MG) PO SCH (22:00)
[2018-06-13] MEDS ORDERED: (PENDING PHARMACY ID) (Tizanidine Hcl [Zanaflex] 4 MG) PO SCH (22:00)
[2018-06-13 22:06] LABS: ANION GAP 13 (5-19); BLOOD UREA NITROGEN 13 mg/dL (7-20); CALCIUM 8.6 mg/dL (8.4-10.2); CARBON DIOXIDE 29 mmol/L (22-30); CHLORIDE 92 mmol/L (98-107); GLUCOSE 232 mg/dL (75-110); POTASSIUM 3.3 mmol/L (3.6-5.0); SODIUM 134.2 mmol/L (137-145)
[2018-06-13] MEDS: TIZANIDINE HCL 4 MG TABLET PO SCH (22:09)
[2018-06-13] MEDS: GABAPENTIN 300 MG CAPSULE PO SCH (22:09)
[2018-06-13] MEDS: ATORVASTATIN CALCIUM 40 MG TABLET PO SCH (22:09)
[2018-06-14 01:36] LABS: ANION GAP 9 (5-19); BLOOD UREA NITROGEN 13 mg/dL (7-20); CALCIUM 8.3 mg/dL (8.4-10.2); CARBON DIOXIDE 30 mmol/L (22-30); CHLORIDE 97 mmol/L (98-107); GLUCOSE 218 mg/dL (75-110); POTASSIUM 3.1 mmol/L (3.6-5.0); SODIUM 135.5 mmol/L (137-145)
[2018-06-14 05:54] LABS: ANION GAP 14 (5-19); BLOOD UREA NITROGEN 12 mg/dL (7-20); CALCIUM 8.3 mg/dL (8.4-10.2); CARBON DIOXIDE 28 mmol/L (22-30); CHLORIDE 97 mmol/L (98-107); GLUCOSE 207 mg/dL (75-110); POTASSIUM 3.1 mmol/L (3.6-5.0); SODIUM 138.7 mmol/L (137-145)
[2018-06-14] MEDS: FAMOTIDINE 20 MG TABLET PO SCH ×2 (06:48→17:25)
[2018-06-14] MEDS: GABAPENTIN 300 MG CAPSULE PO SCH ×3 (06:48→22:47)
[2018-06-14] MEDS: HEPARIN SOD (PORCINE) 5,000 UNIT/ML 1 ML SYRINGE SUBCUT SCH ×3 (06:48→22:40)
--- NOTE | 2018-06-14 07:28 | EKG REPORT ---
SEVERITY:- ABNORMAL ECG - SINUS RHYTHM LEFT VENTRICULAR HYPERTROPHY ABNORMAL T, CONSIDER ISCHEMIA, INFERIOR LEADS PROLONGED QT INTERVAL : Confirmed by: Andre Mayberry MD 14-Jun-2018 07:28:01
[2018-06-14] MEDS ORDERED: NORMAL SALINE 1000 ML 1,000 ML IV ONE (08:15)
[2018-06-14] MEDS: INSULIN LISPRO 100 UNIT/ML 3 ML VIAL SUBCUT PRN ×4 (08:53→22:41)
[2018-06-14] MEDS: POTASSI CL 20 MEQ/NS 1L 1,000 ML IV PRN (09:09)
[2018-06-14] MEDS: CHLORTHALIDONE 25 MG TABLET PO SCH (09:36)
[2018-06-14] MEDS: AMLODIPINE BESYLATE 10 MG TABLET PO SCH (09:37)
[2018-06-14] MEDS: FOLIC ACID 1 MG TABLET PO SCH (09:37)
[2018-06-14] MEDS: METOPROLOL SUCCINATE 50 MG TAB.SR.24H PO SCH (09:37)
[2018-06-14] MEDS: FERROUS SULFATE 325 MG TABLET PO SCH ×3 (09:37→17:25)
[2018-06-14] MEDS: POTASSIUM CHLORIDE 10 MEQ CAPSULE.ER PO SCH (09:37)
--- NOTE | 2018-06-14 10:46 | PDOC PROGRESS REPORT ---
Subjective Progress Note for:: 06/14/18 Subjective:: States that she is feeling very tired this morning-states this is very early in the morning. She did have episode of hypoglycemia with glucose in the 60s and required orange juice to bring her sugars up. This morning her sugars are in the 200s. Reason For Visit: MIXED METABLIC ACIDOSIS AND ALKALOSIS, SUPER Physical Exam Vital Signs: Temp Pulse Resp BP Pulse Ox 99.0 F 89 16 132/72 H 96 06/14/18 07:28 06/14/18 09:34 06/14/18 09:34 06/14/18 07:28 06/14/18 09:34 Intake & Output 06/13/18 06/14/18 06/15/18 06:59 06:59 06:59 Intake Total 1210 3539 1999 Output Total 0 600 Balance 1210 2939 1999 Weight 326 lb 15.128 oz 326 lb 4.546 oz General appearance: PRESENT: no acute distress, morbidly obese Eye exam: PRESENT: EOMI, PERRLA. ABSENT: scleral icterus Ear exam: PRESENT: normal external ear exam Mouth exam: PRESENT: tongue midline Neck exam: ABSENT: tracheal deviation Respiratory exam: PRESENT: decreased breath sounds - Likely secondary to body habitus versus poor inspiratory effort, symmetrical Cardiovascular exam: PRESENT: +S1, +S2 Pulses: PRESENT: +2 pedal pulses bilateral GI/Abdominal exam: PRESENT: normal bowel sounds, soft. ABSENT: tenderness Extremities exam: PRESENT: pedal edema - Minimal trace. ABSENT: joint swelling Neurological exam: PRESENT: alert, awake, oriented to person, oriented to place , oriented to time, CN II-XII grossly intact Skin exam: PRESENT: dry, warm Results Laboratory Results: 06/13/18 05:17 06/14/18 05:32 06/13/18 06/13/18 06/13/18 13:22 17:30 21:20 Sodium 135.2 L 134.5 L 134.2 L Potassium 3.0 L* 3.1 L 3.3 L Chloride 93 L 92 L 92 L Carbon Dioxide 29 30 29 Anion Gap 13 13 13 BUN 17 15 13 Creatinine 1.31 H 1.33 H 1.23 Est GFR ( Amer) 53 L 52 L 57 L Est GFR (Non-Af Amer) 44 L 43 L 47 L Glucose 232 H 271 H 232 H Calcium 8.7 8.5 8.6 09/04/18 09/04/18 01:11 05:32 Sodium 135.5 L 138.7 Potassium 3.1 L 3.1 L Chloride 97 L 97 L Carbon Dioxide 30 28 Anion Gap 9 14 BUN 13 12 Creatinine 1.20 1.26 H Est GFR ( Amer) 59 L 56 L Est GFR (Non-Af Amer) 49 L 46 L Glucose 218 H 207 H Calcium 8.3 L 8.3 L Impressions: Abdomen X-Ray 06/12/18 22:33 IMPRESSION: No acute findings. Assessment & Plan - Diagnosis (1) DKA (diabetic ketoacidoses) Qualifiers: Diabetes mellitus complication detail: with coma Is this a current diagnosis for this admission?: Yes Plan: Resolved-patient is not completely sure if she is type I or type II diabetes. Her ABG is not clear for acidosis and seems to be a mixed picture. Her condition could be secondary to dehydration versus DKA. Her A1c at this admission was 11.5. She is supposed to be on 26 units of Lantus at home but did run out of it for 2 weeks until going to her PCP last Wednesday. But by then she already started to have nausea vomiting which could have been secondary to a gastroenteritis. She was started on Lantus 20 units last night but had also received 10 units earlier that morning when transitioned from insulin drip. I think that is what caused her hypoglycemic episode this morning. I think she is still a little bit dry and I gave her 1 L fluid bolus this morning. I will increase her Lantus tonight to 25 units since at home she takes 26 units. Continue with sliding scale insulin with mealtime. (2) Dehydration Is this a current diagnosis for this admission?: Yes Plan: Continue with IV hydration at this time-I gave her another extra dose of 1 L normal saline bolus this morning (3) Gastroenteritis Is this a current diagnosis for this admission?: Yes Plan: Likely the cause of her nausea and vomiting. Zofran as needed. Supportive care at this time (4) Hypokalemia Is this a current diagnosis for this admission?: Yes Plan: Continues to be hypokalemic-replete as needed with goal of greater than 3.5. She is currently getting D5 half-normal with 20 of K-I gave her some potassium this morning and we will check BMP this afternoon again. (5) Nausea vomiting and diarrhea Is this a current diagnosis for this admission?: Yes Plan: Likely secondary to gastroenteritis. Zofran as needed. (6) Prolonged QT interval Is this a current diagnosis for this admission?: Yes Plan: EKG this morning still show some QT prolongation. We will keep an eye. Will monitor use of Zofran and any other antibiotics that may worsen daily. (7) Essential hypertension Is this a current diagnosis for this admission?: Yes Plan: Blood pressure better this morning-we will continue with some of her meds and hold the rest due to suspected AK I. We will add hydralazine as needed - Plan Summary Plan Summary: Hope to discharge her in 1-2 days if he continues to improve
[2018-06-14 14:27] LABS: ANION GAP 13 (5-19); BLOOD UREA NITROGEN 10 mg/dL (7-20); CALCIUM 8.1 mg/dL (8.4-10.2); CARBON DIOXIDE 25 mmol/L (22-30); CHLORIDE 97 mmol/L (98-107); GLUCOSE 270 mg/dL (75-110); POTASSIUM 3.3 mmol/L (3.6-5.0); SODIUM 134.7 mmol/L (137-145)
[2018-06-14] MEDS ORDERED: POTASSIUM CHLORIDE 10 MEQ CAPSULE.ER PO ONE (15:30)
[2018-06-14] MEDS ORDERED: MAGNESIUM SULFATE/D5W 1 GM/100 ML RTUPB IV ONE (15:30)
[2018-06-14] MEDS ORDERED: INSULIN GLARGINE,HUM.REC.ANLOG 300 UNIT/3 ML INSULN.PEN SUBCUT SCH (22:00)
[2018-06-14] MEDS: ATORVASTATIN CALCIUM 40 MG TABLET PO SCH (22:42)
[2018-06-14] MEDS ORDERED: TIZANIDINE HCL 4 MG TABLET ONE (23:12)
[2018-06-14] MEDS: TIZANIDINE HCL 4 MG TABLET PO SCH (23:24)
[2018-06-15] MEDS: POTASSI CL 20 MEQ/NS 1L 1,000 ML IV PRN ×3 (01:39→23:12)
[2018-06-15] MEDS: HEPARIN SOD (PORCINE) 5,000 UNIT/ML 1 ML SYRINGE SUBCUT SCH ×3 (05:19→22:07)
[2018-06-15] MEDS: FAMOTIDINE 20 MG TABLET PO SCH ×2 (05:19→17:45)
[2018-06-15] MEDS: GABAPENTIN 300 MG CAPSULE PO SCH ×3 (05:20→22:05)
[2018-06-15 06:42] LABS: ANION GAP 9 (5-19); BLOOD UREA NITROGEN 9 mg/dL (7-20); CALCIUM 7.9 mg/dL (8.4-10.2); CARBON DIOXIDE 29 mmol/L (22-30); CHLORIDE 101 mmol/L (98-107); GLUCOSE 209 mg/dL (75-110); SODIUM 138.8 mmol/L (137-145)
[2018-06-15] MEDS: INSULIN LISPRO 100 UNIT/ML 3 ML VIAL SUBCUT PRN ×3 (08:06→22:06)
[2018-06-15 08:28] LABS: HEMATOCRIT 30.9 % (36.0-47.0); MEAN CORPUSCULAR HEMOGLOBIN 32.5 pg (27.0-33.4); MEAN CORPUSCULAR HGB CONC 34.5 g/dL (32.0-36.0); MEAN CORPUSCULAR VOLUME 94 fl (80-97); PLATELET COUNT 142 10^3/uL (150-450); RED BLOOD COUNT 3.28 10^6/uL (3.72-5.28); WHITE BLOOD COUNT 2.8 10^3/uL (4.0-10.5)
[2018-06-15 08:30] LABS: HEMOGLOBIN 10.7 g/dL (12.0-15.5)
[2018-06-15] MEDS: METOPROLOL SUCCINATE 50 MG TAB.SR.24H PO SCH (09:55)
[2018-06-15] MEDS: CHLORTHALIDONE 25 MG TABLET PO SCH (09:55)
[2018-06-15] MEDS: AMLODIPINE BESYLATE 10 MG TABLET PO SCH (09:55)
[2018-06-15] MEDS: FERROUS SULFATE 325 MG TABLET PO SCH ×2 (09:56→14:51)
[2018-06-15] MEDS: FOLIC ACID 1 MG TABLET PO SCH (09:56)
[2018-06-15] MEDS: POTASSIUM CHLORIDE 10 MEQ CAPSULE.ER PO SCH (09:56)
[2018-06-15] MEDS ORDERED: INSULIN LISPRO 100 UNIT/ML 3 ML VIAL SUBCUT ONE (12:30)
--- NOTE | 2018-06-15 16:52 | PDOC PROGRESS REPORT ---
Subjective Progress Note for:: 06/15/18 Subjective:: Jessica states she is feeling better today she has been able to tolerate her diet but has noticed that her blood sugars have gone up. She states that she was taking various medications for treatment of her type 2 diabetes in the past including oral medications but she does not remove the names of these. She had been well controlled on oral medication in her opinion but this was discontinued during a prior hospitalization. She states she is able to get up and be active now and he was hoping that she can be discharged home sometime in the reasonably near future such as tomorrow or Wednesday. Reason For Visit: MIXED METABLIC ACIDOSIS AND ALKALOSIS, SUPER Physical Exam Vital Signs: Temp Pulse Resp BP Pulse Ox 98.4 F 88 17 126/99 H 99 06/15/18 15:46 06/15/18 15:46 06/15/18 15:46 06/15/18 15:46 06/15/18 15:46 Intake & Output 06/14/18 06/15/18 06/16/18 06:59 06:59 06:59 Intake Total 3539 3874 1118 Output Total 600 1050 Balance 2939 2824 1118 Weight 148 kg 153.1 kg General appearance: PRESENT: no acute distress, cooperative, morbidly obese Head exam: PRESENT: atraumatic, normocephalic Eye exam: PRESENT: conjunctiva pink. ABSENT: nystagmus, scleral icterus Ear exam: PRESENT: normal external ear exam. ABSENT: bleeding, drainage Mouth exam: PRESENT: moist, neck supple, tongue midline Neck exam: PRESENT: full ROM. ABSENT: JVD, tracheal deviation Respiratory exam: PRESENT: clear to auscultation thania, symmetrical, unlabored Cardiovascular exam: PRESENT: RRR. ABSENT: clicks, diastolic murmur, gallop, rubs, systolic murmur Pulses: PRESENT: normal carotid pulses, normal radial pulses Vascular exam: PRESENT: normal capillary refill. ABSENT: pallor GI/Abdominal exam: PRESENT: normal bowel sounds, soft. ABSENT: tenderness Extremities exam: PRESENT: full ROM. ABSENT: clubbing, joint swelling, pedal edema Musculoskeletal exam: PRESENT: full ROM, normal inspection. ABSENT: deformity, dislocation Neurological exam: PRESENT: alert, oriented to person, oriented to place, oriented to time, oriented to situation, CN II-XII grossly intact. ABSENT: motor sensory deficit Psychiatric exam: PRESENT: appropriate affect, normal mood Skin exam: ABSENT: jaundice, rash, urticaria Results Laboratory Results: 06/15/18 07:57 06/15/18 05:41 06/15/18 06/15/18 06/15/18 05:41 05:41 07:57 WBC Cancelled 2.8 L RBC Cancelled 3.28 L Hgb Cancelled 10.7 L Hct Cancelled 30.9 L MCV Cancelled 94 MCH Cancelled 32.5 MCHC Cancelled 34.5 RDW Cancelled 15.0 H Plt Count Cancelled 142 L Sodium 138.8 Potassium 3.0 L* Chloride 101 Carbon Dioxide 29 Anion Gap 9 BUN 9 Creatinine 1.22 Est GFR ( Amer) 58 L Est GFR (Non-Af Amer) 48 L Glucose 209 H Calcium 7.9 L Magnesium 1.8 Impressions: Abdomen X-Ray 06/12/18 22:33 IMPRESSION: No acute findings. Assessment & Plan - Diagnosis (1) Dehydration Is this a current diagnosis for this admission?: Yes Plan: She is taking her oral diet well and should no longer require IV fluid support. Continue a regular diabetic diet with consistent carbohydrates with no concentrated sweets, no fluid limitation. Symptomatic treatment of nausea should recur. (2) Essential hypertension Is this a current diagnosis for this admission?: Yes Plan: Continue current antihypertensive regimen as blood pressure has been fairly well controlled. (3) Gastroenteritis Is this a current diagnosis for this admission?: Yes Plan: Symptoms have resolved patient is tolerating her oral diet at this point. Symptomatic control of nausea should it recur. (4) Hypokalemia Is this a current diagnosis for this admission?: Yes Plan: Hypokalemia was present with the level of 3.0 this morning this is been treated per protocol. Oral supplementation may be necessary at the time of discharge as she probably has a significant overall potassium deficit. - Time Time Spent with patient: 35 or more minutes Medications reviewed and adjusted accordingly: Yes
[2018-06-15] MEDS: GLIMEPIRIDE 4 MG TABLET PO SCH (17:45)
[2018-06-15] MEDS: METFORMIN HCL 500 MG TABLET PO SCH (17:46)
[2018-06-15] MEDS ORDERED: INSULIN GLARGINE,HUM.REC.ANLOG 300 UNIT/3 ML INSULN.PEN SUBCUT SCH (22:00)
[2018-06-15] MEDS ORDERED: INSULIN GLARGINE,HUM.REC.ANLOG 1,000 UNIT/10 ML UNIT SUBCUT SCH (22:00)
[2018-06-15] MEDS: TIZANIDINE HCL 4 MG TABLET PO SCH (22:04)
[2018-06-15] MEDS: ATORVASTATIN CALCIUM 40 MG TABLET PO SCH (22:05)
[2018-06-16] MEDS: HEPARIN SOD (PORCINE) 5,000 UNIT/ML 1 ML SYRINGE SUBCUT SCH ×3 (10:09→22:58)
[2018-06-16] MEDS: FERROUS SULFATE 325 MG TABLET PO SCH ×2 (10:09→10:28)
[2018-06-16] MEDS: GABAPENTIN 300 MG CAPSULE PO SCH ×3 (10:09→22:56)
[2018-06-16] MEDS: FAMOTIDINE 20 MG TABLET PO SCH ×2 (10:09→17:22)
[2018-06-16] MEDS: GLIMEPIRIDE 4 MG TABLET PO SCH ×2 (10:10→15:54)
[2018-06-16] MEDS: METFORMIN HCL 500 MG TABLET PO SCH ×2 (10:10→15:54)
[2018-06-16] MEDS: FOLIC ACID 1 MG TABLET PO SCH (10:23)
[2018-06-16] MEDS: METOPROLOL SUCCINATE 50 MG TAB.SR.24H PO SCH (10:23)
[2018-06-16] MEDS: CHLORTHALIDONE 25 MG TABLET PO SCH (10:23)
[2018-06-16] MEDS: AMLODIPINE BESYLATE 10 MG TABLET PO SCH (10:23)
[2018-06-16] MEDS: POTASSIUM CHLORIDE 10 MEQ CAPSULE.ER PO SCH ×3 (10:24→22:55)
[2018-06-16] MEDS: POTASSI CL 20 MEQ/NS 1L 1,000 ML IV PRN ×2 (10:28→22:58)
[2018-06-16] MEDS: INSULIN LISPRO 100 UNIT/ML 3 ML VIAL SUBCUT PRN ×3 (11:19→22:57)
[2018-06-16 12:15] LABS: ABSOLUTE EOSINOPHILS # (AUTO) 0.1 10^3/uL (0.0-0.6); ABSOLUTE LYMPHOCYTES (AUTO) 0.5 10^3/uL (0.5-4.7); ABSOLUTE MONOCYTES (AUTO) 0.6 10^3/uL (0.1-1.4); ABSOLUTE NEUT (AUTO) 3.3 10^3/uL (1.7-8.2); BASOPHILS % (AUTO) 0.4 % (0-2); EOSINOPHILS % (AUTO) 1.5 % (0-6); HEMOGLOBIN 10.6 g/dL (12.0-15.5); LYMPHOCYTES % (AUTO) 11.1 % (13-45); MEAN CORPUSCULAR HEMOGLOBIN 32.2 pg (27.0-33.4); MEAN CORPUSCULAR HGB CONC 34.2 g/dL (32.0-36.0); MEAN CORPUSCULAR VOLUME 94 fl (80-97); MONOCYTES % (AUTO) 12.4 % (3-13); PLATELET COUNT 149 10^3/uL (150-450); RED BLOOD COUNT 3.29 10^6/uL (3.72-5.28); RED CELL DISTRIBUTION WIDTH 15.1 % (11.5-14.0); SEGMENTED NEUTROPHILS % (AUTO) 74.6 % (42-78); TOTAL CELLS COUNTED % (AUTO) 100 %; WHITE BLOOD COUNT 4.5 10^3/uL (4.0-10.5)
[2018-06-16 12:38] LABS: ANION GAP 9 (5-19); BLOOD UREA NITROGEN 8 mg/dL (7-20); CALCIUM 8.3 mg/dL (8.4-10.2); CARBON DIOXIDE 28 mmol/L (22-30); CHLORIDE 100 mmol/L (98-107); GLUCOSE 190 mg/dL (75-110)
--- NOTE | 2018-06-16 20:28 | PDOC PROGRESS REPORT ---
Subjective Progress Note for:: 06/16/18 Subjective:: Jessica states she is feeling better today but she had severe leg cramps last night in both legs that she describes as charley horses. She is agreeable to allowing me to replace her potassium, which is the most likely cause of her leg cramps, through the remainder of today and into tomorrow when her potassium will be most likely at a level that she can be discharged home. Reason For Visit: MIXED METABLIC ACIDOSIS AND ALKALOSIS, SUPER Physical Exam Vital Signs: Temp Pulse Resp BP Pulse Ox 99.7 F 86 16 130/71 H 99 06/16/18 19:20 06/16/18 19:20 06/16/18 19:20 06/16/18 19:20 06/16/18 19:20 Intake & Output 06/15/18 06/16/18 06/17/18 06:59 06:59 06:59 Intake Total 3874 2758 1592 Output Total 9095 700 6183 Balance 2824 2058 -508 Weight 153.1 kg General appearance: PRESENT: no acute distress, cooperative, morbidly obese Head exam: PRESENT: atraumatic, normocephalic Eye exam: PRESENT: conjunctiva pink. ABSENT: nystagmus, scleral icterus Ear exam: PRESENT: normal external ear exam. ABSENT: bleeding, drainage Mouth exam: PRESENT: neck supple, tongue midline Neck exam: PRESENT: full ROM. ABSENT: tracheal deviation Respiratory exam: PRESENT: clear to auscultation thania, symmetrical, unlabored Cardiovascular exam: PRESENT: RRR. ABSENT: clicks, diastolic murmur, gallop, rubs, systolic murmur Pulses: PRESENT: normal carotid pulses, normal radial pulses Vascular exam: PRESENT: normal capillary refill. ABSENT: pallor GI/Abdominal exam: PRESENT: normal bowel sounds, soft. ABSENT: distended, tenderness Rectal exam: PRESENT: deferred Extremities exam: PRESENT: full ROM. ABSENT: joint swelling Musculoskeletal exam: PRESENT: deformity, normal inspection. ABSENT: tenderness Neurological exam: PRESENT: alert, awake, oriented to person, oriented to place , oriented to time, oriented to situation, CN II-XII grossly intact. ABSENT: motor sensory deficit Psychiatric exam: PRESENT: appropriate affect, normal mood Skin exam: ABSENT: jaundice, rash, urticaria Results Laboratory Results: 06/16/18 11:14 06/16/18 11:14 06/16/18 06/16/18 11:14 11:14 WBC 4.5 RBC 3.29 L Hgb 10.6 L Hct 31.0 L MCV 94 MCH 32.2 MCHC 34.2 RDW 15.1 H Plt Count 149 L Seg Neutrophils % 74.6 Lymphocytes % 11.1 L Monocytes % 12.4 Eosinophils % 1.5 Basophils % 0.4 Absolute Neutrophils 3.3 Absolute Lymphocytes 0.5 Absolute Monocytes 0.6 Absolute Eosinophils 0.1 Absolute Basophils 0.0 Sodium 137.0 Potassium 3.0 L* Chloride 100 Carbon Dioxide 28 Anion Gap 9 BUN 8 Creatinine 1.24 Est GFR ( Amer) 57 L Est GFR (Non-Af Amer) 47 L Glucose 190 H Calcium 8.3 L Impressions: Abdomen X-Ray 06/12/18 22:33 IMPRESSION: No acute findings. Assessment & Plan - Diagnosis (1) Dehydration Is this a current diagnosis for this admission?: Yes Plan: She is taking her oral diet well. Continue a regular diabetic diet with consistent carbohydrates with no concentrated sweets, no fluid limitation. Symptomatic treatment of nausea if it should recur. (2) Essential hypertension Is this a current diagnosis for this admission?: Yes Plan: Continue current antihypertensive regimen as blood pressure has been fairly well controlled. (3) Gastroenteritis Is this a current diagnosis for this admission?: Yes Plan: Symptoms have resolved patient is tolerating her oral diet at this point. Symptomatic control of nausea should it recur. (4) Hypokalemia Is this a current diagnosis for this admission?: Yes Plan: Hypokalemia was present with the level of 3.0 this morning this is been treated per protocol. Oral supplementation at a higher dose will be initiated today and continue throughout the post hospital course until she sees her physician in follow-up. Will recheck potassium tomorrow after initial high-dose therapy and plan for discharge tomorrow afternoon. - Time Time Spent with patient: 35 or more minutes Medications reviewed and adjusted accordingly: Yes Anticipated discharge: Home Within: within 24 hours
[2018-06-16] MEDS ORDERED: INSULIN GLARGINE,HUM.REC.ANLOG 1,000 UNIT/10 ML UNIT SUBCUT SCH (22:00)
[2018-06-16] MEDS: ATORVASTATIN CALCIUM 40 MG TABLET PO SCH (22:56)
[2018-06-16] MEDS: TIZANIDINE HCL 4 MG TABLET PO SCH (23:00)
[2018-06-17] MEDS: HEPARIN SOD (PORCINE) 5,000 UNIT/ML 1 ML SYRINGE SUBCUT SCH (05:20)
[2018-06-17] MEDS: GABAPENTIN 300 MG CAPSULE PO SCH (05:32)
[2018-06-17] MEDS: FAMOTIDINE 20 MG TABLET PO SCH (05:32)
[2018-06-17 05:47] LABS: MEAN CORPUSCULAR HEMOGLOBIN 32.3 pg (27.0-33.4); MEAN CORPUSCULAR HGB CONC 34.6 g/dL (32.0-36.0); MEAN CORPUSCULAR VOLUME 93 fl (80-97); PLATELET COUNT 134 10^3/uL (150-450); RED BLOOD COUNT 3.11 10^6/uL (3.72-5.28); RED CELL DISTRIBUTION WIDTH 15.1 % (11.5-14.0)
[2018-06-17 06:13] LABS: ANION GAP 9 (5-19); BLOOD UREA NITROGEN 10 mg/dL (7-20); CALCIUM 8.2 mg/dL (8.4-10.2); CARBON DIOXIDE 26 mmol/L (22-30); CHLORIDE 103 mmol/L (98-107); GLUCOSE 185 mg/dL (75-110); SODIUM 137.8 mmol/L (137-145)
[2018-06-17] MEDS: METFORMIN HCL 500 MG TABLET PO SCH (07:27)
[2018-06-17] MEDS: GLIMEPIRIDE 4 MG TABLET PO SCH (07:27)
[2018-06-17] MEDS: INSULIN LISPRO 100 UNIT/ML 3 ML VIAL SUBCUT PRN ×2 (07:34→12:08)
[2018-06-17] MEDS: FERROUS SULFATE 325 MG TABLET PO SCH (07:34)
[2018-06-17] MEDS: POTASSIUM CHLORIDE 10 MEQ CAPSULE.ER PO SCH ×2 (07:34→12:05)
[2018-06-17] MEDS: POTASSI CL 20 MEQ/NS 1L 1,000 ML IV PRN (07:35)
[2018-06-17] MEDS: AMLODIPINE BESYLATE 10 MG TABLET PO SCH (09:24)
[2018-06-17] MEDS: FOLIC ACID 1 MG TABLET PO SCH (09:25)
[2018-06-17] MEDS: METOPROLOL SUCCINATE 50 MG TAB.SR.24H PO SCH (09:25)
[2018-06-17] MEDS: CHLORTHALIDONE 25 MG TABLET PO SCH (09:25)
[2018-06-17 12:36] VITALS: BP 153/108
--- NOTE | 2018-06-17 22:13 | PDOC DISCHARGE SUMMARY ---
General - Admit/Disc Date/PCP Admission Date/Primary Care Provider: 06/13/18 00:03 ALBA KINNEY MD Discharge Date: 06/17/18 - Discharge Diagnosis (1) Dehydration Is this a current diagnosis for this admission?: Yes Summary: Linda responded very well to IV hydration and her laboratory values normalized over the course of her hospitalization. (2) Essential hypertension Is this a current diagnosis for this admission?: Yes Summary: Fair control with current regiment on discharge. Further refinement of therapy on an outpatient basis will be needed in her follow up visits with her PCP. (3) Gastroenteritis Is this a current diagnosis for this admission?: Yes Summary: This viral illness is the underlying cause of Linda's problem and has resolved during her hospital course. (4) Hypokalemia Is this a current diagnosis for this admission?: Yes Summary: Her hypokalemia responded slowly to replacement therapy and she experienced significant severe nocturnal leg cramping due to this electrolyte deficiency. - Additional Information Resuscitation Status: Full Code Discharge Diet: Diabetic Discharge Activity: Activity As Tolerated Prescriptions: Amlodipine Besylate [Norvasc 10 mg Tablet] 10 mg PO DAILY 90 Days #90 tablet Ferrous Sulfate [Feosol 325 mg Tablet] 325 mg PO QAM 90 Days #90 tablet Glimepiride [Amaryl 4 mg Tablet] 4 mg PO BIDACBS 30 Days #60 tablet Insulin Glargine,Hum.rec.anlog [Lantus Solostar] 100 unit SQ QHS 30 Days #10 insuln.pen Metformin HCl 1,000 mg PO BIDBS 30 Days #60 tablet Metoprolol Succinate [Toprol XL 100 mg Tablet] 100 mg PO WBRKFST 30 Days #30 tab.sr.24h Potassium Chloride 20 meq PO BIDBS 30 Days #60 tablet.er Home Medications: Allopurinol [Zyloprim 100 mg Tablet] 100 mg PO DAILY 06/13/18 Chlorthalidone [Chlorthalidone 25 mg Tablet] 25 mg PO DAILY 06/13/18 Ergocalciferol (Vitamin D2) [Drisdol 50,000 unit (1.25MG) Capsule] 50,000 unit PO MCCAULEY@1000 06/13/18 Folic Acid [Folvite 1 mg Tablet] 1 mg PO DAILY 06/13/18 Gabapentin [Neurontin] 600 mg PO Q8 06/13/18 Insulin Aspart [Novolog Flexpen] 25 units SUBCUT BID 06/13/18 Meloxicam [Mobic] 15 mg PO DAILY 06/13/18 Methotrexate Sodium [Methotrexate] 15 mg PO MCCAULEY@1000 06/13/18 Prednisone [Deltasone 5 mg Tablet] 2.5 mg PO DAILY 06/13/18 Ranitidine HCl [Zantac 150 mg Tablet] 150 mg PO BID 06/13/18 Rosuvastatin Calcium [Crestor 20 mg Tablet] 20 mg PO QHS 06/13/18 Tizanidine HCl [Zanaflex] 4 mg PO QHS 06/13/18 Tofacitinib Citrate [Xeljanz Xr] 11 mg PO DAILY 06/13/18 Tramadol HCl [Ultram 50 mg Tablet] 50 mg PO QIDP PRN 06/13/18 Amlodipine Besylate [Norvasc 10 mg Tablet] 10 mg PO DAILY 90 Days #90 tablet 04/27 Ferrous Sulfate [Feosol 325 mg Tablet] 325 mg PO QAM 90 Days #90 tablet Glimepiride [Amaryl 4 mg Tablet] 4 mg PO BIDACBS 30 Days #60 tablet 06/17/18 Insulin Glargine,Hum.rec.anlog [Lantus Solostar] 100 unit SQ QHS 30 Days #10 insuln.pen 06/17/18 Metformin HCl 1,000 mg PO BIDBS 30 Days #60 tablet 06/17/18 Metoprolol Succinate [Toprol XL 100 mg Tablet] 100 mg PO WBRKFST 30 Days #30 tab.sr.24h 06/17/18 Potassium Chloride 20 meq PO BIDBS 30 Days #60 tablet.er 06/17/18 History of Present Illness History of Present Illness: LINDA COATS is a 42 year old female with a past medical history of super morbid obesity and insulin dependent diabetes. She presented with 5 days of diarrhea and discontinuation of insulin followed by nausea, vomiting and uncontrolled hyperglycemia. She denied fever, suspect meal, recent antibiotics or infectious contacts. In the emergency room she was found to have dehydration , hypokalemia, ?dka, acute renal failure and prolonged QT interval. She received potassium, magnesium and was referred to the hospitalist for admission. Hospital Course Hospital Course: She received IV potassium and magnesium replacement therapy as well as IV fluids , her GE symptoms resolved rapidly and she was treated with oral potassium to achieve a normal level Her symptoms being resolved she was discharged to home. Efforts were made to better control her diabetes during this hospitalization as she was found to have a HgbA1c of 11.5. Her regiment at discharge is still producing less than optimal control but it appears to be an improvement that may be refined on an outpatient basis. Physical Exam Vital Signs: Temp Pulse Resp BP Pulse Ox 98.8 F 94 16 153/108 H 98 06/17/18 11:33 06/17/18 11:33 06/17/18 11:33 06/17/18 11:33 06/17/18 11:33 Intake & Output 06/16/18 06/17/18 06/18/18 06:59 06:59 06:59 Intake Total 2758 3592 65 Output Total 700 2100 Balance 8 1492 65 Weight 153.7 kg General appearance: PRESENT: no acute distress, cooperative, morbidly obese Head exam: PRESENT: atraumatic, normocephalic Eye exam: PRESENT: conjunctiva pink. ABSENT: scleral icterus Ear exam: PRESENT: normal external ear exam. ABSENT: drainage Neck exam: PRESENT: full ROM. ABSENT: tracheal deviation Respiratory exam: PRESENT: clear to auscultation thania, symmetrical, unlabored Cardiovascular exam: PRESENT: RRR. ABSENT: clicks, diastolic murmur, gallop, rubs, systolic murmur Pulses: PRESENT: normal radial pulses, normal dorsalis pedis pul Vascular exam: PRESENT: normal capillary refill. ABSENT: pallor GI/Abdominal exam: PRESENT: normal bowel sounds, soft. ABSENT: distended, tenderness Extremities exam: ABSENT: joint swelling, pedal edema Musculoskeletal exam: PRESENT: full ROM, normal inspection Neurological exam: PRESENT: alert, awake, oriented to person, oriented to place , oriented to time, oriented to situation, CN II-XII grossly intact. ABSENT: motor sensory deficit Psychiatric exam: PRESENT: appropriate affect, normal mood Skin exam: ABSENT: jaundice, rash, urticaria Results Laboratory Results: 06/17/18 05:12 06/17/18 05:12 06/17/18 06/17/18 05:12 05:12 WBC 3.0 L RBC 3.11 L Hgb 10.0 L Hct 29.0 L MCV 93 MCH 32.3 MCHC 34.6 RDW 15.1 H Plt Count 134 L Sodium 137.8 Potassium 4.0 D Chloride 103 Carbon Dioxide 26 Anion Gap 9 BUN 10 Creatinine 1.20 Est GFR ( Amer) 59 L Est GFR (Non-Af Amer) 49 L Glucose 185 H Calcium 8.2 L Magnesium 1.3 L Impressions: Abdomen X-Ray 06/12/18 22:33 IMPRESSION: No acute findings. Qualifiers - * PATIENT BEING DISCHARGED WITH ANY OF THE FOLLOWING DIAGNOSIS: No Plan Time Spent: Greater than 30 Minutes
== END 2018-06-17 13:35 | disposition home or self-care (01) | DRG 391 ==
LOC: ER 19:41 → EH 06-13 00:03 → 3S 06-13 03:25
PROVIDERS: ADMIT Internal Medicine; ATTEND Internal Medicine
PROC: 3E0F73Z Introduction of Anti-inflammatory into Respiratory Tract, Via Natural or Artificial Opening (ICD-10-PCS; principal; 2018-06-13)
DX: A08.4 Viral intestinal infection, unspecified (principal); E10.11 Type 1 diabetes mellitus with ketoacidosis with coma; E87.4 Mixed disorder of acid-base balance; Z68.44 Body mass index [BMI] 60.0-69.9, adult; N17.9 Acute kidney failure, unspecified; E87.3 Alkalosis; E66.01 Morbid (severe) obesity due to excess calories; E87.6 Hypokalemia; I45.81 Long QT syndrome; E86.0 Dehydration; I10 Essential (primary) hypertension; E78.00 Pure hypercholesterolemia, unspecified; M06.9 Rheumatoid arthritis, unspecified; Z79.4 Long term (current) use of insulin; Z79.899 Other long term (current) drug therapy; Z82.49 Family history of ischemic heart disease and other diseases of the circulatory system
CPT/HCPCS: 36415; 36600; 74019; 80048; 80053; 80307; 81001; 82803; 82962; 83036; 83690; 83735; 84703; 85025; 85027; 93005; 93010; 96361; 96374; 99285; J1644; J1815; J2405; J3475; J3480; J3490; J7030; J7120

== ENCOUNTER 2019-04-04 03:38 | Emergency (ER) | payer MEDICARE ==
[2019-04-04] MEDS ORDERED: ASPIRIN 81 MG TABLET, CHEWABLE PO ONE (03:40)
[2019-04-04 04:05] LABS: ABSOLUTE EOSINOPHILS # (AUTO) 0.1 10^3/uL (0.0-0.6); ABSOLUTE LYMPHOCYTES (AUTO) 0.6 10^3/uL (0.5-4.7); ABSOLUTE MONOCYTES (AUTO) 0.6 10^3/uL (0.1-1.4); ABSOLUTE NEUT (AUTO) 3.7 10^3/uL (1.7-8.2); BASOPHILS % (AUTO) 0.4 % (0-2); EOSINOPHILS % (AUTO) 1.2 % (0-6); HEMATOCRIT 30.2 % (36.0-47.0); HEMOGLOBIN 10.3 g/dL (12.0-15.5); LYMPHOCYTES % (AUTO) 11.8 % (13-45); MEAN CORPUSCULAR VOLUME 94 fl (80-97); MONOCYTES % (AUTO) 11.7 % (3-13); PLATELET COUNT 195 10^3/uL (150-450); RED BLOOD COUNT 3.21 10^6/uL (3.72-5.28); RED CELL DISTRIBUTION WIDTH 15.2 % (11.5-14.0); SEGMENTED NEUTROPHILS % (AUTO) 74.9 % (42-78); TOTAL CELLS COUNTED % (AUTO) 100 %; WHITE BLOOD COUNT 4.9 10^3/uL (4.0-10.5)
[2019-04-04] MEDS ORDERED: NORMAL SALINE 1000 ML 1,000 ML IV ONE ×2 (04:18)
--- NOTE | 2019-04-04 04:21 | ER Document Report ---
ED General - General Chief Complaint: Chest Pressure Stated Complaint: CHEST PAIN Time Seen by Provider: 04/04/19 03:52 Primary Care Provider: ALBA KINNEY MD [Primary Care Provider] - Follow up as needed Notes: Patient is a 43-year-old female that comes to emergency department by EMS for chief complaint of almost passing out, dizziness, chest pain. She states that she is set up to go to "get some water", felt lightheaded, got blurry vision and felt like she was going to pass out, at the same time she felt discomfort in her chest in the center without radiation. She states she feels better now and does not have the pain at this time. She was given 324 mg of aspirin by EMS. She denies fever/chills, cough, shortness of breath, nausea/vomiting. Past medical history includes hypertension (took her chlorthalidone last night), rheumatoid arthritis, type 2 diabetes. Denies cardiac history. She denies any recreational drugs. TRAVEL OUTSIDE OF THE [place] IN LAST 30 DAYS: No - Related Data Allergies/Adverse Reactions: No Known Allergies Allergy (Unverified 11/09/17 06:13) Past Medical History - General Information source: Patient, Emergency Med Personnel - Social History Smoking Status: Never Smoker Frequency of alcohol use: None Drug Abuse: None Lives with: Family Family History: Hypertension - Past Medical History Cardiac Medical History: Reports: Hx Hypercholesterolemia, Hx Hypertension Endocrine Medical History: Reports: Hx Diabetes Mellitus Type 2 Renal/ Medical History: Denies: Hx Peritoneal Dialysis Musculoskeletal Medical History: Reports Hx Arthritis - rheumatoid Psychiatric Medical History: Denies: Hx Depression - Immunizations Hx Diphtheria, Pertussis, Tetanus Vaccination: Yes Review of Systems - Review of Systems Constitutional: No symptoms reported EENT: No symptoms reported Cardiovascular: See HPI Respiratory: No symptoms reported Gastrointestinal: No symptoms reported Genitourinary: No symptoms reported Female Genitourinary: No symptoms reported Musculoskeletal: No symptoms reported Skin: No symptoms reported Hematologic/Lymphatic: No symptoms reported Neurological/Psychological: See HPI Physical Exam - Vital signs Vitals: Temp Pulse Resp Pulse Ox 98.1 F 70 18 95 04/04/19 03:50 04/04/19 03:50 04/04/19 03:50 04/04/19 03:50 - Notes Notes: GENERAL: Alert, interacts well. No acute distress. HEAD: Normocephalic, atraumatic. EYES: Pupils equal, round, and reactive to light. Extraocular movements intact. ENT: Oral mucosa moist, tongue midline. Oropharynx unremarkable. Airway patent. Nares patent, no nasal septal hematoma, TM's intact. NECK: Full range of motion. Supple. Trachea midline. LUNGS: Clear to auscultation bilaterally, no wheezes, rales, or rhonchi. No respiratory distress. HEART: Regular rate and rhythm. No murmur ABDOMEN: Soft, non-tender. Non-distended. Bowel sounds present in all 4 quadrants. GENITOURINARY: Deferred EXTREMITIES: Moves all 4 extremities spontaneously. No edema, normal radial and dorsalis pedis pulses bilaterally. No cyanosis. BACK: no cervical, thoracic, lumbar midline tenderness. No saddle anesthesia, normal distal neurovascular exam. Moves all extremities in full range of motion. NEUROLOGICAL: Alert and oriented x3. Normal speech. Cranial nerves II through XII grossly intact. PSYCH: Normal affect, normal mood. SKIN: Warm, dry, normal turgor. No rashes or lesions noted. Course - Re-evaluation Re-evalutation: Patient found to be hypotensive in the mid 80s on initial evaluation. She is awake and alert. She is denying current chest pain. She is not tachycardic. She has no other complaints at this time. Place a 2 peripheral IVs, placed on monitor, given 2 L IV fluid bolus, work-up pending. Patient will be closely monitored and reevaluated. 04/04/19 05:37 Patient still remains asymptomatic on reevaluation. Her blood pressure did imp rove to 104 systolic after IV fluids, however when she fell asleep it dropped back down to the 80s systolic. This is not consistent with patient's prior history which can be reviewed here. She has not nearly completed all of her fluids yet. Patient tells me now that she was started on amlodipine 5 mg and benazepril 40 mg (she previous had been taken off of this), she is currently on her chlorthalidone 25 mg as well. She states she took the new medication last night and she is supposed to take the old one in the morning. CBC shows mild anemia, chemistry shows mild hypokalemia, mildly elevated creatinine compared to prior. Patient was given potassium with her IV fluids. Urinalysis shows somewhat elevated specific gravity. After patient completed the second liter bolus she had significant improvement. She maintained normal blood pressures for a long time. She has a normal troponin, unremarkable chest x-ray. Discussed with patient, discussed with Dr. Estrada. We will cycle her troponin, make sure that she can ambulate without hypotension or dizziness, if she accomplishes this then she will be discharged to follow-up closely with her provider and she will be given specific details to have this performed. Patient states satisfaction and agreement with this plan. - Vital Signs Vital signs: Temp Pulse Resp BP Pulse Ox 97.7 F 70 14 115/63 95 04/04/19 08:41 04/04/19 03:50 04/04/19 08:41 04/04/19 08:41 04/04/19 08:41 - Laboratory Result Diagrams: 04/04/19 03:50 04/04/19 03:50 Laboratory results interpreted by me: 04/04/19 04/04/19 04/04/19 03:50 03:50 06:25 RBC 3.21 L Hgb 10.3 L Hct 30.2 L RDW 15.2 H Lymphocytes % 11.8 L Potassium 3.1 L BUN 36 H Creatinine 2.06 H Est GFR ( Amer) 32 L Est GFR (Non-Af Amer) 26 L Glucose 132 H Creatine Kinase 175 H Urine Protein 30 H Urine Blood SMALL H Discharge - Discharge Clinical Impression: Hypotension, Near syncope Condition: Stable Disposition: HOME, SELF-CARE Additional Instructions: Your blood pressure was too low tonight. This is most likely the cause of your symptoms including almost passing out. I recommend that you hold the new medication that you started (amlodipine 5 mg and benazepril 40 mg). Take a blood pressure journal by checking it a couple times a day, recording this, and then providing the data to your primary care provider so they can decide the best course for you. You had to be rehydrated tonight, your kidney function was also slightly borderline, this needs to be rechecked as well. Return if you worsen including pain in your chest, difficulty breathing, passing out, or any other concerning or worsening symptoms. Referrals: ALBA KINNEY MD [Primary Care Provider] - Follow up as needed
[2019-04-04 04:23] LABS: ALANINE AMINOTRANSFERASE 26 U/L (9-52); ALBUMIN 3.7 g/dL (3.5-5.0); ALKALINE PHOSPHATASE 59 U/L (38-126); ANION GAP 10 (5-19); ASPARTATE AMINO TRANSFERASE 21 U/L (14-36); BILIRUBIN,DIRECT 0.3 mg/dL (0.0-0.4); BILIRUBIN,TOTAL 0.3 mg/dL (0.2-1.3); BLOOD UREA NITROGEN 36 mg/dL (7-20); CALCIUM 8.6 mg/dL (8.4-10.2); CARBON DIOXIDE 29 mmol/L (22-30); CHLORIDE 102 mmol/L (98-107); CREATINE KINASE 175 U/L (30-135); GLUCOSE 132 mg/dL (75-110); POTASSIUM 3.1 mmol/L (3.6-5.0); SODIUM 140.8 mmol/L (137-145); TOTAL PROTEIN 7.2 g/dL (6.3-8.2)
[2019-04-04 04:28] LABS: VENOUS BLOOD BASE EXCESS 2.5 mmol/L; VENOUS BLOOD HCO3 29.9 mmol/L (20-32); VENOUS BLOOD PCO2 58.4 mmHg (35-63); VENOUS BLOOD PH 7.33 (7.30-7.42)
--- NOTE | 2019-04-04 04:33 | RADIOLOGY REPORT (SQ) ---
EXAM DESCRIPTION: XR CHEST 1 VIEW COMPLETED DATE/TME: 04/04/2019 03:40 CLINICAL HISTORY: 43 years, Female, chest pain Comparison: None FINDINGS: No focal lung consolidation. The lung volumes are decreased. No pleural effusion. No pneumothorax. Cardiac and mediastinal silhouette is unremarkable. No acute osseous abnormality. Soft tissues are unremarkable. IMPRESSION: No acute findings. No focal lung consolidation.
[2019-04-04 04:35] LABS: CREATINE KINASE MB 0.55 ng/mL (<4.55)
[2019-04-04 04:37] LABS: TROPONIN I < 0.012 ng/mL
[2019-04-04] MEDS ORDERED: POTASSIUM CHLORIDE 10 MEQ CAPSULE.ER PO ONE (04:58)
[2019-04-04 06:38] LABS: APPEARANCE,URINE CLOUDY; BILIRUBIN,URINE NEGATIVE (NEGATIVE); COLOR,URINE YELLOW; GLUCOSE, URINE NEGATIVE (NEGATIVE); KETONES,URINE NEGATIVE (NEGATIVE); LEUKOCYTE ESTERASE,URINE NEGATIVE (NEGATIVE); NITRITE,URINE NEGATIVE (NEGATIVE); PROTEIN,URINE 30 mg/dL (NEGATIVE); URINE SPECIFIC GRAVITY 1.021; UROBILINOGEN,URINE NEGATIVE mg/dL (<2.0)
[2019-04-04 08:58] VITALS: BP 115/63
--- NOTE | 2019-04-04 23:21 | EKG REPORT ---
SEVERITY:- ABNORMAL ECG - SINUS RHYTHM LEFT VENTRICULAR HYPERTROPHY ABNORMAL T, CONSIDER ISCHEMIA, INFERIOR LEADS : Confirmed by: Jm Riley 04-Apr-2019 23:21:12
== END 2019-04-04 09:00 | disposition home or self-care (01) ==
LOC: ER 03:38
DX: I95.9 Hypotension, unspecified (principal); R55 Syncope and collapse; R07.89 Other chest pain; D64.9 Anemia, unspecified; E87.6 Hypokalemia; E11.9 Type 2 diabetes mellitus without complications; I10 Essential (primary) hypertension; Z79.899 Other long term (current) drug therapy
CPT/HCPCS: 93005; 99285; 96360; 36415; 87040; 82553; 82550; 83735; 84703; 85025; 80053; 81001; 84484; 82803; 83605; 71045; 93010; J7030; A9270

== ENCOUNTER → 2019-06-29 | Outpatient (CLI) | payer MEDICARE ==
[2019-06-29 16:37] LABS: ABSOLUTE EOSINOPHILS # (AUTO) 0.1 10^3/uL (0.0-0.6); ABSOLUTE LYMPHOCYTES (AUTO) 0.7 10^3/uL (0.5-4.7); ABSOLUTE MONOCYTES (AUTO) 0.4 10^3/uL (0.1-1.4); ABSOLUTE NEUT (AUTO) 3.4 10^3/uL (1.7-8.2); BASOPHILS % (AUTO) 0.9 % (0-2); EOSINOPHILS % (AUTO) 1.6 % (0-6); HEMATOCRIT 33.6 % (36.0-47.0); HEMOGLOBIN 11.5 g/dL (12.0-15.5); LYMPHOCYTES % (AUTO) 14.9 % (13-45); MEAN CORPUSCULAR HEMOGLOBIN 31.6 pg (27.0-33.4); MEAN CORPUSCULAR HGB CONC 34.1 g/dL (32.0-36.0); MEAN CORPUSCULAR VOLUME 93 fl (80-97); MONOCYTES % (AUTO) 9.4 % (3-13); PLATELET COUNT 233 10^3/uL (150-450); RED BLOOD COUNT 3.62 10^6/uL (3.72-5.28); RED CELL DISTRIBUTION WIDTH 14.7 % (11.5-14.0); SEGMENTED NEUTROPHILS % (AUTO) 73.2 % (42-78); TOTAL CELLS COUNTED % (AUTO) 100 %; WHITE BLOOD COUNT 4.6 10^3/uL (4.0-10.5)
[2019-06-29 17:07] LABS: ALBUMIN 4.4 g/dL (3.5-5.0); ALKALINE PHOSPHATASE 59 U/L (38-126); ANION GAP 11 (5-19); ASPARTATE AMINO TRANSFERASE 38 U/L (14-36); BILIRUBIN,DIRECT 0.3 mg/dL (0.0-0.4); BILIRUBIN,TOTAL 0.5 mg/dL (0.2-1.3); BLOOD UREA NITROGEN 16 mg/dL (7-20); C-REACTIVE PROTEIN 5.8 mg/L (<10.0); CALCIUM 9.4 mg/dL (8.4-10.2); CARBON DIOXIDE 36 mmol/L (22-30); CHLORIDE 91 mmol/L (98-107); CREATINE KINASE 271 U/L (30-135); GLUCOSE 159 mg/dL (75-110); TOTAL PROTEIN 8.1 g/dL (6.3-8.2)
[2019-06-29 17:10] LABS: POTASSIUM 2.9 mmol/L (3.6-5.0)
[2019-06-29 17:19] LABS: ERYTHROCYTE SEDIMENTATION RATE 73 mm/hr (0-20)
== END ==
LOC: OD 15:19
PROVIDERS: ATTEND Internal Medicine Rheumatology
DX: M06.9 Rheumatoid arthritis, unspecified (principal); M15.0 Primary generalized (osteo)arthritis; D50.8 Other iron deficiency anemias; E79.8 Other disorders of purine and pyrimidine metabolism; E55.9 Vitamin D deficiency, unspecified; Z79.899 Other long term (current) drug therapy
CPT/HCPCS: 36415; 80053; 82306; 82550; 85025; 85652; 86140

== ENCOUNTER → 2020-06-04 | Outpatient (CLI) | payer MEDICARE ==
[2020-06-04 16:31] LABS: ABSOLUTE MONOCYTES (AUTO) 0.4 10^3/uL (0.1-1.4); BASOPHILS % (AUTO) 0.6 % (0-2); EOSINOPHILS % (AUTO) 1.2 % (0-6); HEMATOCRIT 32.6 % (36.0-47.0); HEMOGLOBIN 11.3 g/dL (12.0-15.5); LYMPHOCYTES % (AUTO) 28.4 % (13-45); MEAN CORPUSCULAR HEMOGLOBIN 31.9 pg (27.0-33.4); MEAN CORPUSCULAR HGB CONC 34.8 g/dL (32.0-36.0); MEAN CORPUSCULAR VOLUME 92 fl (80-97); PLATELET COUNT 231 10^3/uL (150-450); RED BLOOD COUNT 3.55 10^6/uL (3.72-5.28); RED CELL DISTRIBUTION WIDTH 15.5 % (11.5-14.0); SEGMENTED NEUTROPHILS % (AUTO) 57.8 % (42-78); TOTAL CELLS COUNTED % (AUTO) 100 %; WHITE BLOOD COUNT 3.4 10^3/uL (4.0-10.5)
[2020-06-04 16:53] LABS: ALBUMIN 4.2 g/dL (3.5-5.0); ALKALINE PHOSPHATASE 54 U/L (38-126); ANION GAP 12 (5-19); ASPARTATE AMINO TRANSFERASE 31 U/L (14-36); BILIRUBIN,DIRECT 0.4 mg/dL (0.0-0.4); BILIRUBIN,TOTAL 0.5 mg/dL (0.2-1.3); BLOOD UREA NITROGEN 28 mg/dL (7-20); CALCIUM 9.5 mg/dL (8.4-10.2); CARBON DIOXIDE 29 mmol/L (22-30); CHLORIDE 99 mmol/L (98-107); CREATINE KINASE 312 U/L (30-135); GLUCOSE 145 mg/dL (75-110); POTASSIUM 3.1 mmol/L (3.6-5.0); TOTAL PROTEIN 7.9 g/dL (6.3-8.2)
[2020-06-04 16:54] LABS: C-REACTIVE PROTEIN < 5.0 mg/L (<10.0)
[2020-06-04 17:43] LABS: ERYTHROCYTE SEDIMENTATION RATE 46 mm/hr (0-20)
== END ==
LOC: OD 15:43
PROVIDERS: ATTEND Internal Medicine Rheumatology
DX: E55.9 Vitamin D deficiency, unspecified (principal); M05.79 Rheumatoid arthritis with rheumatoid factor of multiple sites without organ or systems involvement; M15.0 Primary generalized (osteo)arthritis; E79.8 Other disorders of purine and pyrimidine metabolism; D50.8 Other iron deficiency anemias; Z79.899 Other long term (current) drug therapy
CPT/HCPCS: 36415; 80053; 82306; 82550; 85025; 85652; 86140

== ENCOUNTER → 2020-08-19 | Outpatient (CLI) | payer MEDICARE ==
[2020-08-19 18:43] LABS: ABSOLUTE LYMPHOCYTES (AUTO) 0.9 10^3/uL (0.5-4.7); ABSOLUTE MONOCYTES (AUTO) 0.4 10^3/uL (0.1-1.4); ABSOLUTE NEUT (AUTO) 2.7 10^3/uL (1.7-8.2); BASOPHILS % (AUTO) 0.1 % (0-2); EOSINOPHILS % (AUTO) 1.2 % (0-6); HEMOGLOBIN 11.4 g/dL (12.0-15.5); LYMPHOCYTES % (AUTO) 23.6 % (13-45); MEAN CORPUSCULAR HEMOGLOBIN 32.2 pg (27.0-33.4); MEAN CORPUSCULAR HGB CONC 35.6 g/dL (32.0-36.0); MEAN CORPUSCULAR VOLUME 90 fl (80-97); MONOCYTES % (AUTO) 9.3 % (3-13); PLATELET COUNT 204 10^3/uL (150-450); RED BLOOD COUNT 3.55 10^6/uL (3.72-5.28); SEGMENTED NEUTROPHILS % (AUTO) 65.8 % (42-78); TOTAL CELLS COUNTED % (AUTO) 100 %
[2020-08-19 19:11] LABS: ALBUMIN 4.6 g/dL (3.5-5.0); ALKALINE PHOSPHATASE 55 U/L (38-126); ANION GAP 16 (5-19); ASPARTATE AMINO TRANSFERASE 56 U/L (14-36); BILIRUBIN,DIRECT 0.2 mg/dL (0.0-0.4); BILIRUBIN,TOTAL 0.5 mg/dL (0.2-1.3); BLOOD UREA NITROGEN 48 mg/dL (7-20); CALCIUM 9.8 mg/dL (8.4-10.2); CARBON DIOXIDE 26 mmol/L (22-30); CHLORIDE 97 mmol/L (98-107); CREATINE KINASE 934 U/L (30-135); GLUCOSE 122 mg/dL (75-110); TOTAL PROTEIN 8.1 g/dL (6.3-8.2)
[2020-08-19 19:20] LABS: POTASSIUM 2.9 mmol/L (3.6-5.0)
[2020-08-19 19:30] LABS: ERYTHROCYTE SEDIMENTATION RATE 51 mm/hr (0-20)
== END ==
LOC: OD 16:30
PROVIDERS: ATTEND Internal Medicine Rheumatology
DX: M06.9 Rheumatoid arthritis, unspecified (principal); M15.0 Primary generalized (osteo)arthritis; E79.8 Other disorders of purine and pyrimidine metabolism; E55.9 Vitamin D deficiency, unspecified; Z79.899 Other long term (current) drug therapy
CPT/HCPCS: 36415; 80053; 82306; 82550; 85025; 85652; 86140